=== PATIENT | male | born 1945 | race Caucasian/White ===

== ENCOUNTER → 2018-01-11 07:15 | Outpatient (CLI) | payer MEDICARE, SELFPAY ==
[2018-01-11 08:25] LABS: AST(SGOT) 17 U/L (15-37); Alanine Aminotransfer ALT/SGPT 27 U/L (16-61); Albumin, Serum 3.8 g/dL (3.2-5.0); Alkaline Phosphatase 32 U/L (45-117); Bilirubin, Direct 0.13 mg/dL (0.00-0.30); Cholesterol 144 mg/dL (200); Globulin 3.4 g/dL (2.2-4.2); High Density Lipoprotein 53 mg/dL; Protein, Total 7.2 g/dL (6.4-8.2); Triglycerides 86 mg/dL; Very Low Density Lipoprotein 17 mg/dL (5-40)
== END ==
PROVIDERS: Family Provider Family Medicine; PCP Family Medicine; Visit Provider Internal Medicine Cardiovascular Disease
DX: I10 Essential (primary) hypertension (principal); E78.5 Hyperlipidemia, unspecified; I25.10 Atherosclerotic heart disease of native coronary artery without angina pectoris; Z95.1 Presence of aortocoronary bypass graft
CPT/HCPCS: 36415; 80061; 80076

== ENCOUNTER → 2018-08-26 08:56 | Outpatient (CLI) | payer MEDICARE, SELFPAY ==
[2018-07-12 11:41] VITALS: BMI 31.8
[2018-08-26 09:35] LABS: Hematocrit 45.8 % (40-54); Hemoglobin 15.9 g/dl (13.0-16.5); Mean Corp Hgb Conc 34.7 g/gl (32-36); Mean Corpuscular Hgb 31.3 pg (27.0-32.0); Mean Corpuscular Volume 90.2 fL (80-94); Mean Platelet Vol. 9.7 fl (6.2-12.0); Platelet Count 298 K/mm3 (150-450); RBC Distribution Width CV 13.5 % (11.6-14.6); RBC Distribution Width SD 44.3 fl (35.1-43.9); Red Blood Count 5.08 M/mm3 (4.6-6.2); Scan Indicated on CBC? Y/N NO; White Blood Count 5.9 K/mm3 (4.4-11.0)
[2018-08-26 10:04] LABS: ALB/GLOB Ratio 1.2 RATIO (0.9-2.4); AST(SGOT) 21 U/L (15-37); Alanine Aminotransfer ALT/SGPT 39 U/L (16-61); Albumin, Serum 3.8 g/dL (3.2-5.0); Alkaline Phosphatase 31 U/L (45-117); Anion Gap 8 (5-15); BUN 25 mg/dL (7-18); BUN/Creat Ratio 19.4 RATIO (10-20); Calcium,Total 8.8 mg/dL (8.5-10.1); Chloride 103 mmol/L (98-107); Cholesterol 142 mg/dL (200); Creatinine, Serum 1.29 mg/dL (0.70-1.30); EST Glomerular Filtration Rate 58 mL/min (>60); Est Glom Filt Rate - Afr Amer 70 mL/min (>60); Globulin 3.3 g/dL (2.2-4.2); Glucose 105 mg/dL (74-106); High Density Lipoprotein 53 mg/dL; PSA,Total - Annual Screen 1.78 ng/mL (0.00-4.00); Potassium 4.1 mmol/L (3.5-5.1); Protein, Total 7.1 g/dL (6.4-8.2); Sodium Level 138 mmol/L (136-145); Triglycerides 112 mg/dL; Very Low Density Lipoprotein 22 mg/dL (5-40)
== END ==
PROVIDERS: Family Provider Family Medicine; PCP Family Medicine; Referring Provider Family Medicine; Visit Provider Family Medicine
DX: I25.10 Atherosclerotic heart disease of native coronary artery without angina pectoris (principal); N40.0 Benign prostatic hyperplasia without lower urinary tract symptoms; Z12.5 Encounter for screening for malignant neoplasm of prostate
CPT/HCPCS: 36415; 80053; 80061; 84153; 85027; G0103

== ENCOUNTER → 2018-11-22 | Outpatient (CLI) | payer MEDICARE, SELFPAY ==
[2018-07-12 11:41] VITALS: BMI 31.8
--- NOTE | 2018-11-22 14:14 | RAD_ITS ---
STUDY: X-RAY - ABDOMEN/PELVIS REASON FOR EXAM: Male, 73 years old. Abdominal pain TECHNIQUE: AP supine and upright views of the abdomen and pelvis. COMPARISON: None. FINDINGS: There is no bowel obstruction. There is air and stool to the level of the rectum. There are surgical clips noted in the abdominal wall, consistent with prior hernia repair. The visualized osseous structures are within normal limits. RAD/Abd Inc Decub and/or Erect IMPRESSION: No bowel obstruction. Electronically Signed: Nile Blackwell, at 14:49 EDT Tel , Service support ,
== END | disposition home or self-care (01) ==
LOC: MTRAD 14:12
PROVIDERS: Family Provider Family Medicine; PCP Family Medicine; Referring Provider Family Medicine; Visit Provider Family Medicine
DX: R10.9 Unspecified abdominal pain (principal)
CPT/HCPCS: 74019

== ENCOUNTER → 2018-12-09 | Outpatient (CLI) | payer MEDICARE, SELFPAY ==
[2018-07-12 11:41] VITALS: BMI 31.8
[2018-12-09 10:00] LABS: ALB/GLOB Ratio 0.7 RATIO (0.9-2.4); AST(SGOT) 13 U/L (15-37); Alanine Aminotransfer ALT/SGPT 26 U/L (16-61); Albumin, Serum 3.2 g/dL (3.2-5.0); Alkaline Phosphatase 58 U/L (45-117); Anion Gap 8 (5-15); BUN 26 mg/dL (7-18); BUN/Creat Ratio 21.7 RATIO (10-20); Calcium,Total 9.1 mg/dL (8.5-10.1); Chloride 106 mmol/L (98-107); EST Glomerular Filtration Rate 63 mL/min (>60); Est Glom Filt Rate - Afr Amer 76 mL/min (>60); Globulin 4.6 g/dL (2.2-4.2); Glucose 108 mg/dL (74-106); Protein, Total 7.8 g/dL (6.4-8.2); Sodium Level 142 mmol/L (136-145)
== END | disposition home or self-care (01) ==
LOC: LAB 09:11
PROVIDERS: Family Provider Family Medicine; PCP Family Medicine; Referring Provider Family Medicine; Visit Provider Family Medicine
DX: I10 Essential (primary) hypertension (principal)
CPT/HCPCS: 36415; 80053

== ENCOUNTER 2018-12-30 23:44 | Observation (INO) | payer MEDICARE, SELFPAY ==
[2018-07-12 11:41] VITALS: BMI 31.8
[2018-12-30 23:45] VITALS: BP 185/82; PULSE 65; RESP 18; TEMP 37.1; O2SAT 99; BMI 32.0
[2018-12-31] VITALS (10 sets, daily range): BP systolic 138–168; BP diastolic 65–82; PULSE 55–67; RESP 16–18; TEMP 36.4–36.9; O2SAT 96–99; BMI 31.5; BMI 31.6
--- NOTE | 2018-12-31 00:03 | ED.DCSUM_ITS ---
History of Present Illness Chief Complaint: Chest Pain Informant: Patient Narrative: She presents with chest pain. It started 2 hours ago at rest. He describes a tightness across his lower chest both sides. No other symptoms. No radiation of symptoms. No shortness of breath. Status post CABG quadruple in 2016. He has had no problems since. No Plavix. Takes an aspirin daily. Took today's aspirin this morning. It is resolved currently. It lasted for an hour and a half prior to coming in. Denies any PE risk factors. He does have hypertension - Past Medical History (1) Atherosclerosis of coronary artery of [place] heart without angina pectoris Status: Chronic Comment: CABG x 4 Sequential XIE-LAD and D1, SVG-High Lat Cx, SVG-Cx 09/11/15 (2) Essential hypertension Status: Chronic (3) H/O coronary artery bypass surgery Status: Chronic Comment: CABG x 4 Sequential XIE-LAD and D1, SVG-High Lat Cx, SVG-Cx 09/11/15 Dr Min @ [facility] (4) Hyperlipidemia Status: Chronic (5) Syncope and collapse Status: Chronic Past Medical History - Allergies and Home Meds Allergies/Adverse Reactions: Allergies No Known Allergies Allergy (Verified 07/12/18 11:41) Primary Care Physician: Jesus Garrett MD [Primary Care Provider] - Prior records reviewed: Yes Past Medical History: - - See problem list Surgical History: coronary bypass surgery Smoking Status: Never smoker Alcohol: None Drugs: None - Family History Maternal Family History: Reports: - - Aortic stenosis Review of Systems General: Denies: Chills, Fever, Sweats Eyes: Denies: Visual changes - bilaterally, Diplopia ENT: Denies: Rhinorrhea, Sore throat Cardiovascular: Reports: Chest pain. Denies: Palpitations Respiratory: Denies: Dyspnea, Cough, Dyspnea on exertion Gastrointestinal: Denies: Abdominal pain, Nausea, Vomiting, Diarrhea, Melena, Hematochezia Genitourinary: Denies: Dysuria, Hematuria, Frequency Musculoskeletal: Denies: Back pain, Extremity Pain Skin: Denies: Rash, Wounds Neurological: Denies: Headache, Weakness, Numbness Physical Exam Vital Signs/Narrative: Vital Signs Temp Pulse Resp BP Pulse Ox 12/30/18 23:45 98.8 F 65 18 185/82 H 99 General: Well nourished, Well developed, No Acute Distress Head: Normocephalic, Atraumatic Eyes: Perrl, EOMI ENT: Moist mucous membranes, No rhinorrhea Neck: Supple, Nontender Cardiovascular: Regular rate, Regular rhythm, No murmurs Respiratory: No distress, CTA bilaterally, Chest nontender Abdomen: Soft, Nontender, Nondistended, Normal bowel sounds Back: Nontender, Normal Inspection Extremities: Nontender, No edema Skin: Normal color, No rash Neurological: Alert, Oriented x3, Cranial nerves II-XII grossly intact, Normal Strength, Normal Sensation Psychological: Normal affect, Normal Mood Diagnostic/Tx/Re-eval - Medical Decision Making EKG shows normal sinus rhythm at a rate of 69. T wave inversion in aVL. This is change from 2016. Otherwise normal EKG without acute STEMI or ischemic findings. Patient took aspirin. No pain currently. Lab work chest x-ray obtained. Troponin negative. BUN 28. Rest of labs unremarkable. Chest x-ray shows atelectasis lingular. Otherwise nothing acute. Patient willing to stay in the hospital for further cardiac rule out. Discussed with the hospitalist and will be admitted ED Disposition - Plan for ED Patient: Disposition: Acute Care Hospital [facility] Diagnosis: Chest pain at rest
--- NOTE | 2018-12-31 00:03 | RAD_ITS ---
HISTORY: Chest Pain ADDITIONAL HISTORY: None provided. COMPARISON: 09/06/2015 TECHNIQUE: Frontal and lateral chest radiographs. Number of images including paperwork: 2 FINDINGS: LUNGS AND PLEURA: No dense consolidation. Mild airspace opacity in the lingula. Apical scarring appears similar. CARDIAC SILHOUETTE: Unremarkable. MEDIASTINUM AND ELDER: Unremarkable. UPPER ABDOMEN: Unremarkable. SKELETON AND SOFT TISSUES: No acute findings. Degenerative changes. OTHER DEVICES AND HARDWARE: Sternal wires, surgical clips and epicardial pacing wire fragments. RAD/Chest PA and Lateral IMPRESSION: Small area of opacity in the lingula, possibly atelectasis, pneumonia and/or scarring. Radiographic follow-up recommended to ensure resolution. at 0057 Reported and signed by: Selina Raymond MD Electronically Signed: Selina Raymond MD at 0:57 EDT Tel , Service support ,
--- NOTE | 2018-12-31 00:03 | EKG12_ITS ---
Test Reason : CP Blood Pressure : / mmHG Vent. Rate : 069 BPM Atrial Rate : 069 BPM P-R Int : 156 ms QRS Dur : 098 ms QT Int : 426 ms P-R-T Axes : 051 -25 080 degrees QTc Int : 456 ms Normal sinus rhythm Normal ECG Confirmed by AMANDEEP PAULA, ELMER ([id number]), acquisition editor YAHAIRA TORREZ ([id number]) on 01/03/2019 1:20:35 PM Referred By: JADON Confirmed By:ELMER BERNSTEIN MD
[2018-12-31 00:15] LABS: Absolute Lymphocyte Count 1.28 X10^3/uL (0.83-4.51); Absolute Neutrophil Count 5.6 X10^3/uL (2.0-7.7); Basophil# 0.03 X10^3/uL; Basophil% 0.4 % (0-1); Eosinophil# 0.14 X10^3/uL; Eosinophils% 1.8 % (0-5); Hematocrit 42.2 % (40-54); Hemoglobin 14.2 g/dL (13.0-16.5); Lymphocyte # 1.28 X10^3/ul (4.0); Lymphocyte % 16.5 % (19-41); Mean Corp Hgb Conc 33.6 g/dL (32-36); Mean Corpuscular Hgb 30.7 pg (27.0-32.0); Mean Corpuscular Volume 91.1 fL (80-94); Mean Platelet Vol. 9.9 fl (6.2-12.0); NRBC Flagged by Analyzer 0 % (0-5); Neutrophil # 5.61 X10^3/uL (2.7-7.7); Neutrophil % 72.2 % (47-70); Platelet Count 260 K/mm3 (150-450); RBC Distribution Width CV 13.6 % (11.6-14.6); RBC Distribution Width SD 45.3 fl (35.1-43.9); Red Blood Count 4.63 M/mm3 (4.6-6.2); White Blood Count 7.8 K/mm3 (4.4-11.0)
[2018-12-31 00:23] LABS: Anion Gap 7 (5-15); BUN 28 mg/dL (7-18); BUN/Creat Ratio 23.3 RATIO (10-20); Calcium,Total 8.7 mg/dL (8.5-10.1); Chloride 106 mmol/L (98-107); EST Glomerular Filtration Rate 63 mL/min (>60); Est Glom Filt Rate - Afr Amer 76 mL/min (>60); Estimated Creatinine Clearance 57.45 ml/min; Glucose 137 mg/dL (74-106); Potassium 3.9 mmol/L (3.5-5.1); Sodium Level 139 mmol/L (136-145)
--- NOTE | 2018-12-31 02:06 | PCM.HP.STD ---
Problem List (1) Chest pain at rest Status: Acute (2) Essential hypertension Status: Chronic (3) Atherosclerosis of coronary artery of [place] heart without angina pectoris Status: Chronic Comment: CABG x 4 Sequential XIE-LAD and D1, SVG-High Lat Cx, SVG-Cx 09/11/15 (4) H/O coronary artery bypass surgery Status: Chronic Comment: CABG x 4 Sequential XIE-LAD and D1, SVG-High Lat Cx, SVG-Cx 09/11/15 Dr Min @ [facility] (5) Syncope and collapse Status: Chronic (6) Hyperlipidemia Status: Chronic History of Present Illness Date of Admission: 12/31/18 Chief Complaint: Chest pain The patient is a 73 year old M with history of coronary artery disease status post quadruple bypass in August 2015 came to ER with chest pain after the supper on 12/30/2018. Patient did not had any angina or chest pain after bypass surgery until the day of admission. Describes chest pain as pressure, from left to right side of chest associated with mild shortness of breath. Patient denies dizziness, lightheadedness, diaphoresis or syncope. In ED, EKG shows normal sinus rhythm at 69 bpm. QTc [address]-T changes. Previous EKG in August 2015 shows normal sinus rhythm with QTC 483 ms. First troponin negative Chest x-ray shows a small area of opacity in lingula possible atelectasis/scarring. Patient does not have signs and symptoms of pneumonia including cough, prolonged shortness of breath or sputum or fever. [] Past Medical History Past Medical History (Chronic Problems): Chronic Problems (Last Reviewed 07/12/18 @ 11:42 by Zenaida Novak) Essential hypertension (Chronic) Atherosclerosis of coronary artery of [place] heart without angina pectoris (Chronic) CABG x 4 Sequential XIE-LAD and D1, SVG-High Lat Cx, SVG-Cx 09/11/15 H/O coronary artery bypass surgery (Chronic 09/11/15) CABG x 4 Sequential XIE-LAD and D1, SVG-High Lat Cx, SVG-Cx 09[facility] Syncope and collapse (Chronic) Hyperlipidemia (Chronic) Medical History: Medical History (Last Reviewed 07/12/18 @ 11:42 by Zenaida Novak) Essential hypertension (Chronic) I10 Atherosclerosis of coronary artery of [place] heart without angina pectoris (Chronic) I25.10 CABG x 4 Sequential XIE-LAD and D1, SVG-High Lat Cx, SVG-Cx 09/11/15 Syncope and collapse (Chronic) R55 Hyperlipidemia (Chronic) E78.5 GERD (gastroesophageal reflux disease) K21.9 Obstructive sleep apnea G47.33 Hypertension (Inactive) I10 Allergies No Known Allergies Allergy (Verified 07/12/18 11:41) Home Medications: Ambulatory Orders Medication Instructions Recorded Ropinirole HCl [Requip] 1 mg PO DAILY 09/06/15 atorvastatin 20 mg tablet 20 mg PO QHS #90 tab 11/13/17 gemfibrozil 600 mg tablet 600 mg PO DAILY #90 tab 11/13/17 omeprazole 40 mg capsule,delayed 40 mg PO DAILY #90 cap 11/13/17 release aspirin 81 mg tablet,delayed 81 mg PO QDAY 11/27/17 release multivitamin tablet 1 tab PO QAM 11/27/17 metoprolol tartrate 25 mg tablet 12.5 mg PO BID #90 tab 01/26/18 Lisinopril 5 mg PO DAILY 12/30/18 Surgical History: Surgical History (Last Reviewed 07/12/18 @ 11:42 by Zenaida Novak) H/O coronary artery bypass surgery (Chronic) Onset Date: 09/11/15 Z95.1 CABG x 4 Sequential XIE-LAD and D1, SVG-High Lat Cx, SVG-Cx 09/11/15 Dr Min @ [facility] Surgical History: coronary bypass surgery Smoking Status: Never smoker Alcohol: None Drugs: None - *Family History Maternal History Items: - - Aortic stenosis Review of Systems Constitutional: Denies: Chills, Fever, Weight Change HEENT: Denies: Head Aches, Sinus Congestion, Sinus Drainage Cardiovascular: Reports: Chest Pain. Denies: Palpitations Respiratory: Denies: Cough, Shortness of breath at rest, Sputum production Gastrointestinal: Denies: Abdominal Pain, Nausea, Vomiting Genitourinary: Denies: Dysuria Musculoskeletal: Denies: Joint Pain, Joint Tenderness Skin: Denies: Rash, Wounds Neurological: Denies: Numbness, Tingling, Focal weakness Psychiatric: Denies: Anxiety, Depression, Homicidal Ideations, Suicidal Ideations Hematologic/ Lymphatic: Denies: Easy Bruising, Easy Bleeding VTE Information - Inpt Only VTE Present on Admission: No VTE Mechan Device Prophylaxis: None VTE Pharm Prophylaxis ordered?: Yes Patient Problems: Active and Suspected Problems (Last Reviewed 07/12/18 @ 11:42 by Zenaida Novak) Chest pain at rest (Acute) - Physical Exam General: Alert, Oriented x3, Cooperative HEENT: Atraumatic, PERRLA, EOMI, Normocephalic Neck: Supple, No JVD, Negative Carotid Bruits Lungs: Clear to auscultation, Normal air movement, No rhonchi, No wheeze, No rales Cardiovascular: Regular rate, Regular Rhythm, Normal S1, Normal S2, No murmurs Abdomen: Bowel Sounds Present, Soft, Non Tender, Non-Distended Extremities: No edema, Capillary Refill Less than 3 Seconds Skin: No rashes, No breakdown Musculoskeletal: No Tenderness to Palpation of Joints or Extremities, Arthritic Changes Neurological: Cranial nerves II-XII grossly intact, Deep Tendon Reflexes 2+/4 and Symmetrical, Neuro grossly intact Psych/Mental Status: Normal Affect, Appropriate Vital Signs Temp Pulse Resp BP Pulse Ox 98.8 F 57 L 16 161/66 H 99 12/30/18 23:45 12/31/18 00:46 12/31/18 00:46 12/31/18 00:46 12/30/18 23:45 Oxygen Flow Rate (L/min) 2 Oxygen Delivery Method Room Air Weight: 220 lb Body Mass Index (BMI) 31.5 Laboratory Tests Past 24 Hrs 12/31/18 12/31/18 00:00 00:00 WBC 7.8 RBC 4.63 Hgb 14.2 Hct 42.2 MCV 91.1 MCH 30.7 MCHC 33.6 RDW Std Deviation 45.3 H RDW Coeff of Deshawn 13.6 Plt Count 260 MPV 9.9 Immature Gran % (Auto) 0.100 Neut % (Auto) 72.2 H Lymph % (Auto) 16.5 L Hudson % (Auto) 9.0 Eos % (Auto) 1.8 Baso % (Auto) 0.4 Absolute Neuts (auto) 5.6 Absolute Lymphs (auto) 1.28 Nucleated RBC % 0 Sodium 139 Potassium 3.9 Chloride 106 Carbon Dioxide 26.0 Anion Gap 7 BUN 28 H Creatinine 1.20 Estim Creat Clear Calc 57.45 Est GFR (MDRD) Af Amer 76 Est GFR (MDRD) Non-Af 63 BUN/Creatinine Ratio 23.3 H Glucose 137 H Calcium 8.7 Troponin I < 0.015 Assessment/Plan All Active Problems (Last Reviewed 07/12/18 @ 11:42 by Zenaida Novak) Chest pain at rest (Acute) Abnormal cardiovascular stress test (Resolved) Syncope (Resolved) The patient is a 73 year old M with history of coronary artery disease status post quadruple bypass in August 2015 came to ER with chest pain after the supper on 12/30/2018. In ED, EKG shows normal sinus rhythm at 69 bpm. QTc [address]-T changes. Previous EKG in August 2015 shows normal sinus rhythm with QTC 483 ms. First troponin negative Chest x-ray shows a small area of opacity in lingula possible atelectasis/scarring. Patient does not have signs and symptoms of pneumonia including cough, shortness of breath or sputum or fever. 1. Atypical chest pain: Patient is being admitted in PCU. Cardiac monitoring. Cycle cardiac enzymes. If cardiac enzymes negative, treadmill nuclear stress for morning. Fasting profile tomorrow a.m. TSH tomorrow a.m. 2. Coronary artery disease status post quadruple bypass surgery. Patient is on aspirin, lisinopril, metoprolol, gemfibrozil and atorvastatin. 3. Mild hyperglycemia: A1c tomorrow a.m. glucose 137 in BMP. 4. Other comorbidities include hypertension and dyslipidemia: Home medication reconciliation done. Blood pressure is elevated 185/82. Titrate dose of lisinopril accordingly. DVT prophylaxis: On Lovenox 40 mg subcu daily. Clinical Impression(s) from Imaging Studies Chest X-Ray 12/31/18 00:03 IMPRESSION: Small area of opacity in the lingula, possibly atelectasis, pneumonia and/or scarring. Radiographic follow-up recommended to ensure resolution. Laboratory Results 12/31/18 00:00: WBC 7.8, RBC 4.63, Hgb 14.2, Hct 42.2, MCV 91.1, MCH 30.7, MCHC 33.6, RDW Std Deviation 45.3 H, RDW Coeff of Deshawn 13.6, Plt Count 260, MPV 9.9, Immature Gran % (Auto) 0.100, Neut % (Auto) 72.2 H, Lymph % (Auto) 16.5 L, Hudson % (Auto) 9.0, Eos % (Auto) 1.8, Baso % (Auto) 0.4, Absolute Neuts (auto) 5.6, Absolute Lymphs (auto) 1.28, Nucleated RBC % 0 12/31/18 00:00: Sodium 139, Potassium 3.9, Chloride 106, Carbon Dioxide 26.0, Anion Gap 7, BUN 28 H, Creatinine 1.20, Estim Creat Clear Calc 57.45, Est GFR (MDRD) Af Amer 76, Est GFR (MDRD) Non-Af 63, BUN/Creatinine Ratio 23.3 H, Glucose 137 H, Calcium 8.7, Troponin I < 0.015 Code Visit OBSV E&M: 15614 Initial observation care L3
--- NOTE | 2018-12-31 02:09 | EKG12_ITS ---
Test Reason : CP ADMIT Blood Pressure : / mmHG Vent. Rate : 061 BPM Atrial Rate : 061 BPM P-R Int : 160 ms QRS Dur : 102 ms QT Int : 446 ms P-R-T Axes : 059 -29 080 degrees QTc Int : 448 ms Normal sinus rhythm Normal ECG When compared with ECG of 06-SEP-2015 02:05, No significant change was found Confirmed by MICHELLE ALVARADO ([id number]), editor map YAHAIRA TORREZ ([id number]) on 01/05/2019 3:46:22 PM Referred By: DR HOWELL Confirmed By:MICHELLE ALVARADO
[2018-12-31] MEDS: Enoxaparin 40 MG/0.4 ML Syringe SC (02:32)
[2018-12-31] MEDS: 0.9% Normal Saline 1,000 ML 50 ML IV (02:32)
[2018-12-31 05:41] LABS: Absolute Lymphocyte Count 1.83 X10^3/uL (0.83-4.51); Absolute Neutrophil Count 4.9 X10^3/uL (2.0-7.7); Basophil# 0.02 X10^3/uL; Basophil% 0.3 % (0-1); Eosinophil# 0.14 X10^3/uL; Eosinophils% 1.9 % (0-5); Hemoglobin 13.2 g/dL (13.0-16.5); Lymphocyte # 1.83 X10^3/ul (4.0); Lymphocyte % 24.4 % (19-41); Mean Corp Hgb Conc 33.8 g/dL (32-36); Mean Corpuscular Hgb 30.6 pg (27.0-32.0); Mean Corpuscular Volume 90.5 fL (80-94); Monocyte# 0.62 X10^3/uL; Monocyte% 8.3 % (0-10); NRBC Flagged by Analyzer 0 % (0-5); Neutrophil # 4.86 X10^3/uL (2.7-7.7); Neutrophil % 64.8 % (47-70); Platelet Count 236 K/mm3 (150-450); RBC Distribution Width CV 13.6 % (11.6-14.6); RBC Distribution Width SD 44.8 fl (35.1-43.9); Red Blood Count 4.31 M/mm3 (4.6-6.2); White Blood Count 7.5 K/mm3 (4.4-11.0)
[2018-12-31] MEDS: Aspirin E.C. 81 MG Tablet PO (05:50)
[2018-12-31] MEDS: Lisinopril 10 MG Tablet PO (05:53)
[2018-12-31 05:58] LABS: International Normalized Ratio 1.1; Partial Thromboplast Time 34.9 Seconds (24.1-36.2); Prothrombin Time (Protime)PT. 13.9 SECONDS (11.7-14.9)
[2018-12-31 06:30] LABS: Anion Gap 8 (5-15); BUN 27 mg/dL (7-18); BUN/Creat Ratio 26.2 RATIO (10-20); Calcium,Total 8.1 mg/dL (8.5-10.1); Chloride 108 mmol/L (98-107); Cholesterol 145 mg/dL (200); Creatinine, Serum 1.03 mg/dL (0.70-1.30); EST Glomerular Filtration Rate 75 mL/min (>60); Est Glom Filt Rate - Afr Amer 91 mL/min (>60); Estimated Creatinine Clearance 66.94 ml/min; Glucose 121 mg/dL (74-106); High Density Lipoprotein 54 mg/dL; Potassium 3.7 mmol/L (3.5-5.1); Sodium Level 142 mmol/L (136-145); Thyroid Stim Hormone (TSH) 0.81 uIU/mL (0.358-3.74); Triglycerides 145 mg/dL; Very Low Density Lipoprotein 29 mg/dL (5-40)
[2018-12-31 07:19] LABS: Hemoglobin A1c 6.3 % (4.2-6.3)
--- NOTE | 2018-12-31 09:37 | NURSING ---
PT TO STRESS TEST
--- NOTE | 2018-12-31 12:57 | STRESSREP ---
Stress Test Report Date: 12-31-18 Procedure: Exercise tolerance test/imaging study Indications: Chest pain; CAD; CABG Consent: Per the patient Procedure: The patient exercised on a Jb protocol for 4 minutes and 15 seconds completing Stage I and 1 minute and 15 seconds of Stage II achieving a peak heart rate of 122 bpm (82 % predicted maximal heart rate) with a peak blood pressure 220/80 mmHg and a peak MET capacity of 6 METs. The baseline ECG demonstrated sinus bradycardia; poor R wave progression. The peak exercise ECG demonstrated 0.[address] segment depression in leads II, III, and aVF with resolution towards baseline beginning by 1 minute in recovery. There were occasional PVCs during exercise and recovery. The functional capacity was considered decreased. There was [no complaint of chest discomfort during exercise or recovery]. The examination was discontinued secondary to dyspnea and leg discomfort. Impression: 1. Technically adequate (percent predicted maximal heart rate greater than 85%) exercise tolerance test 2. Peak exercise ECG with 0.[address] segment depression in leads II, III, and aVF with resolution towards baseline beginning by 1 minute in recovery 3. There were occasional PVCs during exercise and recovery 4. Pharmacologic (Regadenoson) evaluation pending Procedure: Pharmacologic stress nuclear imaging study Consent: Per the patient Procedure: The patient underwent pharmacologic (Regadenoson) evaluation with a peak heart rate of 97 beats per minute (65 %predicted maximal heart rate) and a peak blood pressure of 184/70 mmHg. The baseline ECG demonstrated normal sinus rhythm; poor R wave progression. The peak pharmacologic ECG demonstrated no obvious ECG changes. There was a rare PVC during recovery. [There was no complaint of chest discomfort during pharmacologic infusion or recovery]. The examination was discontinued secondary to completion of protocol. Impression: 1. Pharmacologic (Regadenoson) evaluation 2. Peak pharmacologic ECG with no obvious ECG changes. 3. There was a rare PVC during recovery. 4. Nuclear images pending Myocardial perfusion imaging study: Technique: The patient was injected with 14.3 millicuries of technetium 99m Cardiolite and subsequently rest SPECT Cardiolite nuclear imaging was obtained in the horizontal long, vertical long, and short axis views. The patient exercised on a Jb protocol for 4 minutes and 15 seconds completing Stage I and 1 minute and 15 seconds of Stage II achieving a peak heart rate of 122 bpm (82 % predicted maximal heart rate) with a peak blood pressure 220/80 mmHg and a peak MET capacity of 6 METs. The patient underwent pharmacologic (Regadenoson) evaluation with a peak heart rate of 97 beats per minute (65 % percent predicted maximal heart rate) and a peak blood pressure of 184/70 mmHg. The patient was injected with 43.0 millicuries of technetium 99m Cardiolite and subsequently stress SPECT Cardiolite nuclear imaging was obtained in the horizontal long, vertical long, and short axis views. A gated Cardiolite study at peak stress was obtained. Interpretation: Rest and stress SPECT Cardiolite nuclear imaging status post realignment, normalization, and attenuation correction demonstrate relative uniform tracer uptake and myocardial perfusion appearing within normal limits. [There is end systolic thickening and brightening]. [The gated Cardiolite study demonstrates myocardial thickening and inward wall motion]. The reported LVEF is 78 %. Impression: 1. [Rest and stress SPECT Cardiolite nuclear imaging demonstrate relative uniform tracer uptake and myocardial perfusion appearing within normal limits]. 2. The gated Cardiolite study reports an LVEF of 78 %. This note was generated with Hytleation software. It may contain incorrect words, spelling, and punctuation that were not noted in checking the note before signing.
[2018-12-31] MEDS: Gemfibrozil 600 MG Tablet PO (13:06)
[2018-12-31] MEDS: Pantoprazole Sodium 40 MG Tablet PO (13:06)
[2018-12-31] MEDS: Multivitamins,Therapeutic Tablet 1 TABLET PO (13:06)
[2018-12-31] MEDS: Pramipexole Di-HCl 0.5 MG Tablet PO (13:06)
[2018-12-31] MEDS: Metoprolol Tartrate 25 MG Tablet 12.5 MG PO (13:06)
--- NOTE | 2018-12-31 13:26 | DCINST_ITS ---
- Discharge Diagnoses Current Active Problems: Current Active and Chronic Problems (Last Reviewed 07/12/18 @ 11:42 by Zenaida Novak) Chest pain at rest (Acute) You will use the following diet at home:: Cardiac Your food should be the consistency of: Regular Your liquids should be the consistency of: Regular/Thin Discharge Activity: Return to Normal Activity Weight Bearing Status: Weight bearing as tolerated Call your doctor if you observe: Shortness of breath, Chest pain Instructions: What Is Angina? Allergies/Adverse Reactions: Allergies No Known Allergies Allergy (Verified 07/12/18 11:41) Medications to take at Discharge Ropinirole HCl [Requip] 1 mg PO DAILY 09/06/15 atorvastatin 20 mg tablet 20 mg PO QHS #90 tab 11/13/17 gemfibrozil 600 mg tablet 600 mg PO DAILY #90 tab 11/13/17 omeprazole 40 mg capsule,delayed release 40 mg PO DAILY #90 cap 11/13/17 aspirin 81 mg tablet,delayed release 81 mg PO QDAY 11/27/17 multivitamin tablet 1 tab PO QAM 11/27/17 metoprolol tartrate 25 mg tablet 12.5 mg PO BID #90 tab 01/26/18 Lisinopril 10 mg PO DAILY 12/30/18 Primary Care Physician: Jesus Garrett MD [Primary Care Provider] - Please follow up with your Primary Care Physician in: call office within one week for an appointment Test Results: Test results from this visit will be discussed in further detail at your follow- up appointment, if applicable. Proposed Discharge Date: 12/31/18
--- NOTE | 2018-12-31 13:28 | PCM.DC.SUM ---
Discharge Date and Diagnosis - Problem List Patient Problems: Active and Suspected Problems (Last Reviewed 07/12/18 @ 11:42 by Zenaida Novak) Chest pain at rest (Acute) Date of Admission: 12/31/18 Date of Discharge: 12/31/18 - Primary Discharge Diagnosis Active and Suspected Problems (Last Reviewed 07/12/18 @ 11:42 by Zenaida Novak) Chest pain at rest (Acute) - Secondary Discharge Diagnosis Chronic Problems (Last Reviewed 07/12/18 @ 11:42 by Zenaida Novak) Essential hypertension (Chronic) Atherosclerosis of coronary artery of [place] heart without angina pectoris (Chronic) CABG x 4 Sequential XIE-LAD and D1, SVG-High Lat Cx, SVG-Cx 09/11/15 H/O coronary artery bypass surgery (Chronic 09/11/15) CABG x 4 Sequential XIE-LAD and D1, SVG-High Lat Cx, SVG-Cx 09/11/15 Dr Min @ [facility] Syncope and collapse (Chronic) Hyperlipidemia (Chronic) Hospital Course and Treatment Imaging Results: 12/31/18 05:55 Nuclear Stress Test - Chemical [NM] Routine Operations: None Procedures: Nuclear stress test Summary of Care Provided: The patient is a 73 year old M with an extensive past medical history as listed which includes coronary artery disease status post quadruple bypass in August 2015. He was admitted through the ED on 12/31/2018 with a complaint of chest pain which started after supple 1 day prior to admission. Chest pain was pressure-like, radiated from the left side of his chest to the right side lasted with mild shortness of breath. EKG showed no acute ST changes. Chest x-ray showed possible atelectasis. Initial troponin was negative. Patient was admitted and managed for chest pain to rule out ACS. He had a stress test on 12/31/2018 which was negative. Patient remained stable throughout admission and chest pain did not of her care. He was discharged home on 12/31/2018 and is follow-up with his primary care doctor. Patient seen and examined prior to discharge. He had no complaints and felt well. Review of systems otherwise negative. Labs and vitals reviewed. Home medications reviewed and reconciled. On examination Vital Signs Height 5 ft 10 in Weight: 219 lb 12.744 oz Weight in Pounds 219.8 lbs Pulse Ox 99 Temperature 98.0 F Pulse Rate 62 Respiratory Rate 18 Blood Pressure [BP] 138/65 Blood Pressure 156/71 Blood Pressure Position [BP] Left Lateral Blood Pressure Position Semi-Fowlers []General: Alert, Oriented x3, Cooperative HEENT: Atraumatic, PERRLA, EOMI, Normocephalic Neck: Supple, No JVD, Negative Carotid Bruits Lungs: Clear to auscultation, Normal air movement, No rhonchi, No wheeze, No rales Cardiovascular: Regular rate, Regular Rhythm, Normal S1, Normal S2, No murmurs Abdomen: Bowel Sounds Present, Soft, Non Tender, Non-Distended Extremities: No edema, Capillary Refill Less than 3 Seconds Skin: No rashes, No breakdown Musculoskeletal: No Tenderness to Palpation of Joints or Extremities, Arthritic Changes Neurological: Cranial nerves II-XII grossly intact, Deep Tendon Reflexes 2+/4 and Symmetrical, Neuro grossly intact Psych/Mental Status: Normal Affect, Appropriate Plan as above. Patient Problems: Active and Suspected Problems (Last Reviewed 07/12/18 @ 11:42 by Zenaida Novak) Chest pain at rest (Acute) - Physical Exam Vital Signs Temp Pulse Resp BP Pulse Ox 98.0 F 62 18 156/71 H 99 12/31/18 12:00 12/31/18 13:06 12/31/18 12:00 12/31/18 13:06 12/31/18 12:00 Oxygen Flow Rate (L/min) 2 Oxygen Delivery Method Room Air Weight: 219 lb 12.744 oz Body Mass Index (BMI) 31.5 Intake and Output for Last 24 Hours 12/29/18 12/30/18 12/31/18 23:59 23:59 23:59 Intake Total 325 / 325 Balance 325 / 325 Laboratory Tests Past 24 Hrs 12/31/18 12/31/18 12/31/18 00:00 00:00 02:45 WBC 7.8 RBC 4.63 Hgb 14.2 Hct 42.2 MCV 91.1 MCH 30.7 MCHC 33.6 RDW Std Deviation 45.3 H RDW Coeff of Deshawn 13.6 Plt Count 260 MPV 9.9 Immature Gran % (Auto) 0.100 Neut % (Auto) 72.2 H Lymph % (Auto) 16.5 L Lea % (Auto) 9.0 Eos % (Auto) 1.8 Baso % (Auto) 0.4 Absolute Neuts (auto) 5.6 Absolute Lymphs (auto) 1.28 Nucleated RBC % 0 PT INR APTT Sodium 139 Potassium 3.9 Chloride 106 Carbon Dioxide 26.0 Anion Gap 7 BUN 28 H Creatinine 1.20 Estim Creat Clear Calc 57.45 Est GFR (MDRD) Af Amer 76 Est GFR (MDRD) Non-Af 63 BUN/Creatinine Ratio 23.3 H Glucose 137 H Hemoglobin A1c Calcium 8.7 Troponin I < 0.015 < 0.015 Triglycerides Cholesterol LDL Cholesterol VLDL Cholesterol HDL Cholesterol TSH 12/31/18 12/31/18 12/31/18 05:15 05:15 05:15 WBC 7.5 RBC 4.31 L Hgb 13.2 Hct 39.0 L MCV 90.5 MCH 30.6 MCHC 33.8 RDW Std Deviation 44.8 H RDW Coeff of Deshawn 13.6 Plt Count 236 MPV 10.0 Immature Gran % (Auto) 0.300 Neut % (Auto) 64.8 Lymph % (Auto) 24.4 Lea % (Auto) 8.3 Eos % (Auto) 1.9 Baso % (Auto) 0.3 Absolute Neuts (auto) 4.9 Absolute Lymphs (auto) 1.83 Nucleated RBC % 0 PT INR APTT Sodium 142 Potassium 3.7 Chloride 108 H Carbon Dioxide 26.0 Anion Gap 8 BUN 27 H Creatinine 1.03 Estim Creat Clear Calc 66.94 Est GFR (MDRD) Af Amer 91 Est GFR (MDRD) Non-Af 75 BUN/Creatinine Ratio 26.2 H Glucose 121 H Hemoglobin A1c 6.3 Calcium 8.1 L Troponin I < 0.015 Triglycerides 145 Cholesterol 145 LDL Cholesterol 62 VLDL Cholesterol 29 HDL Cholesterol 54 TSH 0.81 12/31/18 05:15 WBC RBC Hgb Hct MCV MCH MCHC RDW Std Deviation RDW Coeff of Deshawn Plt Count MPV Immature Gran % (Auto) Neut % (Auto) Lymph % (Auto) Lea % (Auto) Eos % (Auto) Baso % (Auto) Absolute Neuts (auto) Absolute Lymphs (auto) Nucleated RBC % PT 13.9 INR 1.1 APTT 34.9 Sodium Potassium Chloride Carbon Dioxide Anion Gap BUN Creatinine Estim Creat Clear Calc Est GFR (MDRD) Af Amer Est GFR (MDRD) Non-Af BUN/Creatinine Ratio Glucose Hemoglobin A1c Calcium Troponin I Triglycerides Cholesterol LDL Cholesterol VLDL Cholesterol HDL Cholesterol TSH Discharge Diet: Low fat/ Low Cholesterol Discharge Activity: Return to Normal Activity Weight Bearing Status: Weight bearing as tolerated Call your doctor if you observe: Shortness of breath, Chest pain Home Medications: Medications to take at Discharge Ropinirole HCl [Requip] 1 mg PO DAILY 09/06/15 atorvastatin 20 mg tablet 20 mg PO QHS #90 tab 11/13/17 gemfibrozil 600 mg tablet 600 mg PO DAILY #90 tab 11/13/17 omeprazole 40 mg capsule,delayed release 40 mg PO DAILY #90 cap 11/13/17 aspirin 81 mg tablet,delayed release 81 mg PO QDAY 11/27/17 multivitamin tablet 1 tab PO QAM 11/27/17 metoprolol tartrate 25 mg tablet 12.5 mg PO BID #90 tab 01/26/18 Lisinopril 10 mg PO DAILY 12/30/18 Primary Care Physician: Jesus Garrett MD [Primary Care Provider] - Please follow up with your Primary Care Physician in: call office within one week for an appointment Patient Instructions: What Is Angina? Disposition: Home Minutes spent on discharge:: 35 Patient Condition:: Stable Medical Necessity - Tobacco Use Smoking Status: Former smoker Meaningful Use Info Meaningful Use Diagnoses (Choose all that apply): None applicable Code Visit OBSV E&M: 12543 Observ/hosp same date L2
== END 2018-12-31 14:15 | disposition home or self-care (01) ==
LOC: ED 12-31 01:08 → PCU 12-31 01:31
PROVIDERS: Admitting Provider Internal Medicine; Emergency Provider Emergency Medicine; Family Provider Family Medicine; PCP Family Medicine; Visit Provider Student in an Organized Health Care Education/Training Program
DX: R07.89 Other chest pain (principal); I10 Essential (primary) hypertension; I25.10 Atherosclerotic heart disease of native coronary artery without angina pectoris; E78.5 Hyperlipidemia, unspecified; R06.02 Shortness of breath; G47.33 Obstructive sleep apnea (adult) (pediatric); K21.9 Gastro-esophageal reflux disease without esophagitis; R73.9 Hyperglycemia, unspecified; Z79.899 Other long term (current) drug therapy; Z79.82 Long term (current) use of aspirin; Z95.1 Presence of aortocoronary bypass graft; Z87.891 Personal history of nicotine dependence
CPT/HCPCS: 36415; 71046; 78452; 80048; 80061; 83036; 84443; 84484; 85025; 85610; 85730; 93005; 93017; 96372; 99218; 99285; A9500; J7030; A4216; G0378; J2785

== ENCOUNTER → 2019-02-15 | Outpatient (CLI) | payer MEDICARE, SELFPAY ==
[2019-02-10 10:21] VITALS: BMI 31.5
--- NOTE | 2019-02-15 09:41 | RAD_ITS ---
STUDY: X-RAY CHEST REASON FOR EXAM: Male, 73 years old. Abnormal chest x-ray and chest pain a month ago. TECHNIQUE: PA and lateral views of the chest. COMPARISON: December 31, 2018. FINDINGS: The lungs are hyperexpanded. There is chronic interstitial changes at the lung bases thought to be secondary to COPD. There is a slightly improved inspiratory effort with resolution of the left basilar atelectasis seen on the prior study. There is no demonstrated pleural abnormality. Sternal cerclage wires are present from a prior sternotomy. The heart is normal in size. Normal mediastinum and mary. Normal visualized pulmonary arteries. Normal visualized aortic arch and descending thoracic aorta. The thoracic spine is obscured by the mediastinum. There is degenerative osteoarthritis of the bilateral shoulders. There is no demonstrated abnormality of the visualized soft tissue structures of the upper abdomen. RAD/Chest PA and Lateral IMPRESSION: Minimally improved inspiration with resolution of the lingular atelectasis seen on the prior study. There is no other major interval change. Electronically Signed: Gregorio Blanca DO at 16:53 EDT Tel [phone], Service support ,
== END | disposition home or self-care (01) ==
LOC: MTRAD 09:39
PROVIDERS: Family Provider Family Medicine; PCP Family Medicine; Referring Provider Family Medicine; Visit Provider Family Medicine
DX: R93.89 Abnormal findings on diagnostic imaging of other specified body structures (principal)
CPT/HCPCS: 71046

== ENCOUNTER → 2019-02-16 | Outpatient (CLI) | payer MEDICARE, SELFPAY ==
[2019-02-10 10:21] VITALS: BMI 31.5
--- NOTE | 2019-02-16 07:47 | US_ITS ---
STUDY: ABDOMINAL ULTRASOUND - RIGHT UPPER QUADRANT REASON FOR VISIT: Male, 73 years old abdominal pain. TECHNIQUE: Ultrasound evaluation of the right upper quadrant was performed with real-time and static richards-scale imaging. TECHNICAL QUALITY: Adequate. COMPARISON: None. FINDINGS: Liver: The liver measures 16 cm. There is increased echogenicity consistent with fatty infiltration. The bile ducts are within normal limits. There is hepatic color flow. The direction of portal flow is hepatopetal. There is no demonstrated mass lesion. Gallbladder: Normal distended gallbladder. The gallbladder wall measures 2.4 mm. There is a negative sonographic De Dios's sign. There is no pericholecystic fluid. There are multiple echogenic structures within the gallbladder, consistent with multiple gallstones. Common Bile Duct (C.B.D.): The common bile duct measures 3.7 mm. Pancreas: Normal size of the head, body and tail of the pancreas. There is normal echogenicity of the pancreas. There is no demonstrated pancreatic mass or cyst. Right Kidney: Normal size of the right kidney. The right kidney measures 11.2 cm by 7.4 cm x 5.4 cm. Normal renal cortex. The right cortex measures 1.6 cm. There is no demonstrated renal mass or cyst. There is no right hydronephrosis. US/Abdomen Limited IMPRESSION: Fatty infiltration of the liver. Gallstones. Electronically Signed: Geo Moreno, at 15:36 EDT , Service support ,
== END | disposition home or self-care (01) ==
LOC: US 07:46
PROVIDERS: Family Provider Family Medicine; PCP Family Medicine; Referring Provider Internal Medicine Cardiovascular Disease; Visit Provider Internal Medicine Cardiovascular Disease
DX: R10.9 Unspecified abdominal pain (principal)
CPT/HCPCS: 76705

== ENCOUNTER → 2019-04-04 | Outpatient (CLI) | payer MEDICARE, SELFPAY ==
[2019-04-04 08:23] VITALS: BMI 32.7
== END | disposition home or self-care (01) ==
LOC: PAVLAB 08:53
PROVIDERS: Family Provider Family Medicine; PCP Family Medicine; Referring Provider Surgery; Visit Provider Surgery
DX: Z01.818 Encounter for other preprocedural examination (principal)

== ENCOUNTER 2019-04-08 08:31 | Day surgery (SDC) | payer MEDICARE, SELFPAY ==
[2019-02-28 15:33] VITALS: BMI 31.5
[2019-04-04 08:23] VITALS: BMI 32.7
[2019-04-04 09:28] LABS: Hematocrit 47.2 % (40-54); Hemoglobin 16.2 g/dL (13.0-16.5); Mean Corp Hgb Conc 34.3 g/dL (32-36); Mean Corpuscular Hgb 30.4 pg (27.0-32.0); Mean Corpuscular Volume 88.6 fL (80-94); Mean Platelet Vol. 9.7 fl (6.2-12.0); Platelet Count 308 K/mm3 (150-450); RBC Distribution Width CV 13.2 % (11.6-14.6); RBC Distribution Width SD 42.6 fl (35.1-43.9); Red Blood Count 5.33 M/mm3 (4.6-6.2); White Blood Count 6.8 K/mm3 (4.4-11.0)
[2019-04-04 09:29] LABS: Anion Gap 5 (5-15); BUN 18 mg/dL (7-18); BUN/Creat Ratio 15.7 RATIO (10-20); Calcium,Total 9.3 mg/dL (8.5-10.1); Chloride 103 mmol/L (98-107); Creatinine, Serum 1.15 mg/dL (0.70-1.30); EST Glomerular Filtration Rate 66 mL/min (>60); Est Glom Filt Rate - Afr Amer 80 mL/min (>60); Glucose 107 mg/dL (74-106); Potassium 4.1 mmol/L (3.5-5.1); Sodium Level 137 mmol/L (136-145)
[2019-04-08] VITALS (13 sets, daily range): BP systolic 133–174; BP diastolic 52–80; PULSE 56–78; RESP 16–18; TEMP 36.6–37.3; O2SAT 92–98; BMI 32.5
--- NOTE | 2019-04-08 | GALL_PTH ---
PATIENT: FLOYD HOWELL [place] [facility] [id number] AGE/SX: 73/M ROOM: RE04/08/[address]: Dr. Floyd Zaldivar MD : [id number] BED: DIS: 04/08/2019 SPEC #: [id number] RECD: 04/08/19 14:47 STATUS: CLAUDIO TODD #: [id number] VASILE: 04/08/19 00:[address]: Floyd Zaldivar DEPT: SURGICAL PATHOLOGY RECD BY: Saurabh Dawn ENTERED: 04/08/19 14:47 SP TYPE: SEMAJ OSMAN DR: Dr. Ishmael Garrett MD Tissues: Gallbladder, NOS Procedures: Surgery Specimen Level III HEADER OPERATION: Laparoscopic cholecystectomy with IOC PRE-OP DIAGNOSIS: Calculus of gallbladder with chronic cholecystitis TISSUE SUBMITTED: Gallbladder MICROSCOPIC DIAGNOSIS Gallbladder, cholecystectomy: Chronic cholecystitis, cholelithiasis and focal cholesterolosis. SJ:miguel ángel 04/11/19 MICROSCOPIC DESCRIPTION Slides are reviewed. GROSS DESCRIPTION Received is one container labeled with the patient's name and designated gallbladder. The specimen consists of a gallbladder measuring 7.4 x 3.5 x 2 cm. The external surface is smooth and glistening. Focally, it is granular, hemorrhagic and contains cautery artifact. The lumen of the gallbladder contains yellow mucoid bile and multiple black calculi ranging in size from 0.3 to 1 cm in greatest dimension. The mucosa is bile-stained and without any mass lesions. The gallbladder wall averages 0.2 cm in thickness and is free of mass lesions. Sales Floor Associate sections of the gallbladder and the cystic duct are submitted in one cassette. / AM:miguel ángel 04/08/19 TC:3 CPT: 71914
--- NOTE | 2019-04-08 08:44 | EKG12_ITS ---
Test Reason : PRE OP Blood Pressure : / mmHG Vent. Rate : 057 BPM Atrial Rate : 057 BPM P-R Int : 166 ms QRS Dur : 098 ms QT Int : 446 ms P-R-T Axes : 063 -22 073 degrees QTc Int : 434 ms Sinus bradycardia Otherwise normal ECG When compared with ECG of 31-DEC-2018 02:08, No significant change was found Confirmed by AMANDEEP PAULA, ELMER ([id number]), legal editor IQRA ROSE ([id number]) on 04/12/2019 3:01:14 PM Referred By: Ubaldo Zaldivar Confirmed By:ELMER BERNSTEIN MD
[2019-04-08] MEDS: Lactated Ringers 1,000 ML 100 ML IV ×2 (09:45→13:57)
--- NOTE | 2019-04-08 10:41 | HP.PCM_ITS ---
Problem List (1) Cholelithiasis with chronic cholecystitis Status: Chronic Qualifiers: Cholelithiasis location: gallbladder Biliary obstruction: without biliary obstruction Qualified Code(s): K80.10 - Calculus of gallbladder with chronic cholecystitis without obstruction History and Physical Date of Admission: 04/08/19 Intake Visit Reasons: update h&p renzo tange [place] 11-8 Chief Complaint: update H&P for lap gale [employer] Management Intern Required: No Is patient in pain?: No Allergies No Known Allergies Allergy (Verified 04/04/19 08:24) Medications Ropinirole HCl [Requip] 1 mg PO DAILY 09/06/15 [History Confirmed 04/04/19] atorvastatin 20 mg tablet 20 mg PO QHS #90 tab 11/13/17 [Rx Confirmed 04/04/19] gemfibrozil 600 mg tablet 600 mg PO DAILY #90 tab 11/13/17 [Rx Confirmed 04/04/19] omeprazole 40 mg capsule,delayed release 40 mg PO DAILY #90 cap 11/13/17 [Rx Confirmed 04/04/19] aspirin 81 mg tablet,delayed release 81 mg PO QDAY 11/27/17 [History Confirmed 04/04/19] multivitamin tablet 1 tab PO QAM 11/27/17 [History Confirmed 04/04/19] metoprolol tartrate 25 mg tablet 12.5 mg PO BID #90 tab 02/03/19 [Rx Confirmed 04/04/19] lisinopril 20 mg tablet 20 mg PO BID #180 tab 03/08/19 [Rx Confirmed 04/04/19] [facility] Medical History (Updated 04/04/19 @ 08:24 by Mary Ellen Sears) Cholelithiasis with chronic cholecystitis (Chronic) Essential hypertension (Chronic) Atherosclerosis of coronary artery of [place] heart without angina pectoris (Chronic) Syncope and collapse (Chronic) Hyperlipidemia (Chronic) Cholelithiasis (Acute) Personal history of colonic polyps (Acute) GERD (gastroesophageal reflux disease) (Chronic) Obstructive sleep apnea (Chronic) Hypertension (Inactive) Surgical History (Updated 04/04/19 @ 08:24 by Mary Ellen Sears) H/O coronary artery bypass surgery (Chronic 09/11/15) History of colonoscopy (Acute ~03/2019) History of hemorrhoidectomy (Acute) Family History (Updated 02/28/19 @ 15:26 by Lida Magaña) Mother Arthritis Heart disease Father Cancer Social History (Updated 04/05/19 @ 14:54 by Cyndie Antoine PA-C) Smoking Status: Former smoker alcohol intake: current substance use type: does not use HPI HPI HPI: FLOYD HOWELL is a 73 M who presents to the office today for HPI HPI Surgical H&P: Yes HPI: FLOYD HOWELL, is a 73 M who presents to the office today for an update history and physical for an upcoming procedure. Patient notes he has had a col onoscopy by Dr. Arrieta last week. he had a polyp removed which was benign. It was recommended the patient repeat his colonoscopy in 5 years. Patient denies other hospitalizations or illnesses. Patient has previously had a quadruple bypass in 2016. Dr. Judge is his wheel loader operator. He is maintained on a baby ASA. Patient has had a previous ventral hernia repair at [facility]. Records could not be obtained. Patient denies previous complications with anesthesia. Patient's previous history per Dr. Zaldivar: FLOYD HOWELL, is a 73 M who presents to the office today for surgical consultation regarding gallstones. The patient is referred by his wheel loader operator Dr. Marquez Judge for surgical consultation regarding gallstones and suspected gallbladder disease. Written copy of my surgical consult recommendations will be returned to him as well as forwarded on to the patient's primary care physician Dr. Ishmael Garrett. 73-year-old gentleman who after eating [place] food he had a felt like tightness of his lower chest. He has had a previous history of syncope times 01 September 2015 which he eventuated and coronary bypass grafting x4. He did not have chest pain at that time. On this occasion he underwent cardiac evaluation with troponins negative chest x-ray unremarkable and stress test unremarkable for acute ischemia. When he saw his wheel loader operator Dr. Marquez Judge there was concerns about possible gallbladder disease. On February 16, 2019 the patient had a gallbladder ultrasound. Fatty change of the liver was noted. Gallstones were noted. The patient denies fever or chills or sweats or jaundice. He has not had any acute change in his bowel habits. He states that he recently has had a Cologuard test. He has never had a colonoscopy and he declines colonoscopy. Upon further questioning it is evident that he is previously had a ventral hernia repair he thinks approximately year 2003 in [place]. Unfortunately he is not able to identify the hospital of location so we cannot obtain records. He is not aware whether there would have been mesh placed. His laboratory on his emergency room visit of December 31, 2018 shows a white count of 7.5 with a hemoglobin 13.2 and hematocrit of 39 platelet count of 236,000 with normal differential. BUN is 27 creatinine 1.03. ROS General General: No weight change, appetite, fatigue, colon cancer, breast cancer or weakness HEENT HEENT: No difficulty swallowing, eye injury, eye surgery, swollen glands or hoarseness Endo Endocrine: No thyroid disease, diabetes mellitus, thyroid cancer, Hair loss, heat intolerance or cold intolerance Skin Skin: No rash or changing moles Breast Breast: No left breast lump, right breast lump, nipple discharge, breast pain, abnormal mammogram, abnormal US or breast enlargement Musc Musculoskeletal: No back problems, arthritis, rheumatoid arthritis, gout or joint pain Cardio Cardiovascular: Yes high blood pressure and heart attack; no murmur, pacemaker, heart disease, atrial fibrillation, heart stent, palpitations, shortness of breat with exertion or chest pain Psych Psychiatric: No depression, anxiety or hearing voices Resp Respiratory: No shortness of breath, No sleep apnea, No cough, No COPD, No asthma, No emphysema, No wheezing Gastro Gastrointestinal: No abdominal pain, No nausea or vomiting, No diarrhea, No constipation, No blood in stool, Yes acid reflux, No hemorrhoids, No ulcers, Yes gallbladder problem, No black,tarry stools Rudi Hematologic: No blood thinners, No blood disorders, No bleeding, No anemia, No blood clots Neuro Neurologic: No weakness Exam Const General: cooperative, healthy appearing, comfortable, no acute distress [facility] Head: normal to inspection Eyes General: appearance normal, both eyes and all related structures Chest Breast Palpation: No nipple discharge Resp Effort & Inspection: normal respiratory effort Auscultation: clear to auscultation bilaterally Cardio Rate: regular rate Rhythm: regular rhythm Heart Sounds: no murmurs GI Inspection: normal to inspection, obesity Palpation: soft Auscultation: normal bowel sounds Skin General: no rashes or lesions noted Neuro General: no focal motor deficits, CN's II-XI intact bilaterally Extrem General: normal to inspection Psych Appearance: grossly normal Affect: normal affect Assessment & Plan Problems 1. Calculus of gallbladder with chronic cholecystitis without obstruction K80.[address] Zaldivar will plan to perform a laparoscopic cholecystectomy with intraoperative cholangiogram. Procedure was reviewed including details, risks and benefits. Patient has had the opportunity to ask and have questions answered. Patient verbally understands and agrees with the plan. Patient to continue his aspirin. Per Dr. Zaldivar's last note: Consideration for placing incision more superior to the umbilicus and doing a dasia technique would be a consideration. Coding Level of Care Code No Charge Diagnoses Calculus of gallbladder with chronic cholecystitis without obstruction K80.10 ??Cholelithiasis location: gallbladder ??Biliary obstruction: without biliary obstruction Comment Update H&P 04/05/19 1454 <Electronically signed by Cyndie winchester PA-C> Date _ Cyndie Antoine PA-C Cosigner Signature: Date (if applicable) CC: ~ I have re-examined the patient. There are no clinical changes since date of exam.
[2019-04-08] MEDS: Cefazolin 2 GM in 0.9% Normal Saline 100 ML IV (10:49)
--- NOTE | 2019-04-08 10:55 | DCINST_ITS ---
Discharge Diet: Light diet - advance as tolerated - if you have questions about your diet instructions, please talk to you doctor. Discharge Activity: May Not Drive - for 3-5 days or while taking narcotic pain medicine. May shower in (days): 1 Lifting Restrictions: 10 pounds Call your doctor if your incision/area has: Continuous Slow Oozing, Sudden Increased Bleeding, Increased Pain/ Swelling, Increased Redness, Foul Smelling Discharge Call your doctor if you observe: Fever of 101 or Higher Suture Line Care: Avoid Pulling/Pushing, Avoid Pinching/Bending Additional Dressing/Incision Instructions:: Change or remove dressing in 4 days. Leave steri-strips in place for 1 week. Allergies/Adverse Reactions: Allergies No Known Allergies Allergy (Verified 04/04/19 08:24) Medications to take at Discharge Ropinirole HCl [Requip] 1 mg PO DAILY 09/06/15 atorvastatin 20 mg tablet 20 mg PO QHS #90 tab 11/13/17 gemfibrozil 600 mg tablet 600 mg PO DAILY #90 tab 11/13/17 omeprazole 40 mg capsule,delayed release 40 mg PO DAILY #90 cap 11/13/17 aspirin 81 mg tablet,delayed release 81 mg PO QDAY 11/27/17 multivitamin tablet 1 tab PO QAM 11/27/17 metoprolol tartrate 25 mg tablet 12.5 mg PO BID #90 tab 02/03/19 lisinopril 20 mg tablet 20 mg PO BID #180 tab 03/08/19 Primary Care Physician: Jesus Garrett MD [Primary Care Provider] - Test Results: Test results from this visit will be discussed in further detail at your follow- up appointment, if applicable. Please Follow Up With: Ubaldo Zaldivar MD - [phone] When: Call to make an appointment to be seen in about 10 days.
--- NOTE | 2019-04-08 11:10 | RAD_ITS ---
STUDY: INTRAOPERATIVE CHOLANGIOGRAM. REASON FOR EXAM: Male, 73 years old. Chronic cholecystitis. Cholelithiasis. FLUOROSCOPY TIME (if supplied): ( 24.2 seconds ) minutes/seconds. 76 images in a cine loop were obtained. TECHNIQUE: Intraoperative guidance performed by the surgeon. Imaging was submitted. COMPARISON: None. FINDINGS: The common bile duct is not dilated. No intraluminal filling defect is seen. There is free flow of contrast into the duodenum. RAD/Cholangiogram/ O R,Initial IMPRESSION: Unremarkable intraoperative cholangiogram. Electronically Signed: Geo Moreno, at 13:16 EST , Service support ,
--- NOTE | 2019-04-08 12:30 | OP.PCM_ITS ---
Problem List (1) Cholelithiasis with chronic cholecystitis Status: Chronic Qualifiers: Cholelithiasis location: gallbladder Biliary obstruction: without biliary obstruction Qualified Code(s): K80.10 - Calculus of gallbladder with chronic cholecystitis without obstruction Report of Operation Date of Procedure: 04/08/19 Pre-Operative Diagnosis: Chronic cholecystitis cholelithiasis Post-Operative Diagnosis: Same Surgery/Procedure Performed:: Laparoscopic cholecystectomy with cholangiograms Description of Surgical Findings:: Timeout and informed consent was obtained. 73-year-old gentleman was taken out from placement table underwent general endotracheal intubation and anesthesia. The abdomen was sterilely prepped and draped. Ancef 2 g were given intravenously preoperatively. 0.5% Marcaine was used as a local anesthetic. Throughout the procedure total 30 cc was used. Skin sites were pre-ane sthetized. A supraumbilical vertical incision was created. Holding sutures of 0 Vicryl placed sharp dissection carried down through the subtenons tissue. The fascia was incised. The peritoneum was incised. No evidence of any bowel involvement. 12 mm trocar was inserted. The abdomen is inspected no evidence of any superficial adhesions. No evidence of any trocar injury. Under direct physician 5 Alberto port was placed in the epigastric right mid upper quadrant and right lateral upper quadrant because of the patient's very bulbous distended abdomen. The liver was noted to have steatosis and was quite fatty. The gallbladder was grasped with adhesions of omentum to the gallbladder these had to be bluntly and sharply dissected free. Unfortunately because of the patient's body habitus with bulbous abdomen I could not get visualization to the infundibular area. So an additional 5 Alberto port was placed in the mid abdomen and a liver retractor was placed and that was used to help retract the transverse colon fatty omentum and get visualization of the infundibular area. Tedious blunt dissection was performed until clearly the hepatocystic angle was fully dissected free and the cystic duct and cystic artery identified. Hem-o-ajit clip was placed on the cystic duct at the infundibular area incision was made in this area cholangiogram catheter was removed and fluoroscopically control cholangiograms were obtained demonstrating free flow into the small bowel. I do not see any filling defects. There was reflux into the liver. The clench Shai catheter was removed and 2 hemo-lock clips were placed on the cystic duct stump prior to transecting it. The cystic artery was clipped twice proximally once distally prior to transecting it. The gallbladder was dissected free from the liver bed using electrocautery. Additional hemo-lock clip was used to secure some extra fibrofatty tissue. The gallbladder was completely released. There was no spillage. The liver bed was irrigated and aspirated free. A piece of fibrillar was placed in the liver bed to further assure hemostasis. The gallbladder was placed in a retrieval bag and exited at the umbilicus. The subhepatic space again inspected noted be hemostatic. All fluid and air was aspirated free. The trochars removed under visualization were visible. The abdomen was allowed to deflate of the CO2. The fascia at the supraumbilical area was closed with a [id number] suture of 0 Nurolon. Skin edges approximated interrupted 4 Monocryl subdermal stitches. Steri-Strips Telfa and OpSite dressings applied. Sponge and instrument and needle counts were reported the surgeon to be correct. Blood loss was minimal. Specimens gallbladder. Drains none. Blood loss minimal. Ubaldo Zaldivar M.D., F.A.C.S. Type of Anesthesia:: General Anesthesiologist: Berhane Gu
[2019-04-08] MEDS: Bupivacaine Mpf 0.5% 30 ML VIAL (12:35)
[2019-04-08] MEDS: Ketorolac 15 MG/ML Vial IV (14:33)
== END 2019-04-08 17:16 | disposition home or self-care (01) ==
LOC: SDC 08:31 → AC 08:32
PROVIDERS: Anesthesiology; Family Provider Family Medicine; PCP Family Medicine; Referring Provider Surgery; Visit Provider Surgery
PROC: (CPT 47610; principal; 2019-04-08 10:40)
DX: K80.10 Calculus of gallbladder with chronic cholecystitis without obstruction (principal); I10 Essential (primary) hypertension; I25.10 Atherosclerotic heart disease of native coronary artery without angina pectoris; E78.5 Hyperlipidemia, unspecified; K21.9 Gastro-esophageal reflux disease without esophagitis; G47.33 Obstructive sleep apnea (adult) (pediatric); Z87.891 Personal history of nicotine dependence; Z95.1 Presence of aortocoronary bypass graft; Z79.82 Long term (current) use of aspirin; Z79.899 Other long term (current) drug therapy
CPT/HCPCS: 47563; 36415; 74300; 76000; 80048; 85027; 88304; 93005; J7120; J2405

== ENCOUNTER → 2019-11-10 08:44 | Outpatient (CLI) | payer MEDICARE, SELFPAY ==
[2019-08-11 09:41] VITALS: BMI 32.5
[2019-11-10 09:47] LABS: AST(SGOT) 19 U/L (15-37); Alanine Aminotransfer ALT/SGPT 33 U/L (16-61); Albumin, Serum 3.9 g/dL (3.2-5.0); Alkaline Phosphatase 29 U/L (45-117); Bilirubin, Direct 0.19 mg/dL (0.00-0.30); Cholesterol 144 mg/dL (200); Globulin 3.5 g/dL (2.2-4.2); High Density Lipoprotein 50 mg/dL; Protein, Total 7.4 g/dL (6.4-8.2); Triglycerides 94 mg/dL; Very Low Density Lipoprotein 19 mg/dL (5-40)
[2019-11-10 09:53] LABS: ALB/GLOB Ratio 1.1 RATIO (0.9-2.4); AST(SGOT) 19 U/L (15-37); Alanine Aminotransfer ALT/SGPT 33 U/L (16-61); Albumin, Serum 3.9 g/dL (3.2-5.0); Alkaline Phosphatase 31 U/L (45-117); Anion Gap 6 (5-15); BUN 27 mg/dL (7-18); BUN/Creat Ratio 22.9 RATIO (10-20); Calcium,Total 8.9 mg/dL (8.5-10.1); Chloride 104 mmol/L (98-107); Creatinine, Serum 1.18 mg/dL (0.70-1.30); EST Glomerular Filtration Rate 64 mL/min (>60); Est Glom Filt Rate - Afr Amer 78 mL/min (>60); Globulin 3.5 g/dL (2.2-4.2); Glucose 107 mg/dL (74-106); PSA,Total - Annual Screen 2.38 ng/mL (0.00-4.00); Potassium 4.2 mmol/L (3.5-5.1); Protein, Total 7.4 g/dL (6.4-8.2); Sodium Level 138 mmol/L (136-145)
== END ==
PROVIDERS: PCP Family Medicine; Referring Provider Internal Medicine Cardiovascular Disease; Visit Provider Internal Medicine Cardiovascular Disease
DX: E78.5 Hyperlipidemia, unspecified (principal); I25.10 Atherosclerotic heart disease of native coronary artery without angina pectoris; N40.0 Benign prostatic hyperplasia without lower urinary tract symptoms
CPT/HCPCS: 36415; 80053; 80061; 80076; 84153; G0103

== ENCOUNTER → 2020-07-05 08:31 | Outpatient (CLI) | payer MEDICARE, SELFPAY ==
[2020-03-08 10:14] VITALS: BMI 33.5
[2020-07-05 09:23] LABS: AST(SGOT) 21 U/L (15-37); Alanine Aminotransfer ALT/SGPT 32 U/L (16-61); Alkaline Phosphatase 31 U/L (45-117); Bilirubin, Direct 0.15 mg/dL (0.00-0.30); Cholesterol 163 mg/dL (200); Globulin 3.4 g/dL (2.2-4.2); High Density Lipoprotein 59 mg/dL; Protein, Total 7.4 g/dL (6.4-8.2); Triglycerides 103 mg/dL; Very Low Density Lipoprotein 21 mg/dL (5-40)
== END ==
PROVIDERS: PCP Family Medicine; Referring Provider Nurse Practitioner Family; Visit Provider Nurse Practitioner Family
DX: E78.00 Pure hypercholesterolemia, unspecified (principal); E78.5 Hyperlipidemia, unspecified
CPT/HCPCS: 36415; 80061; 80076

== ENCOUNTER → 2021-03-01 09:55 | Outpatient (CLI) | payer MEDICARE, SELFPAY ==
[2021-03-01 11:15] LABS: AST(SGOT) 15 U/L (15-37); Alanine Aminotransfer ALT/SGPT 28 U/L (16-61); Albumin, Serum 3.8 g/dL (3.2-5.0); Alkaline Phosphatase 29 U/L (45-117); Cholesterol 154 mg/dL (200); Globulin 3.7 g/dL (2.2-4.2); High Density Lipoprotein 55 mg/dL; Protein, Total 7.5 g/dL (6.4-8.2); Triglycerides 93 mg/dL; Very Low Density Lipoprotein 19 mg/dL (5-40)
== END ==
PROVIDERS: Internal Medicine Cardiovascular Disease; PCP Family Medicine; Referring Provider Family Medicine; Visit Provider Family Medicine
DX: E78.00 Pure hypercholesterolemia, unspecified (principal)
CPT/HCPCS: 36415; 80061; 80076

== ENCOUNTER 2021-08-26 09:25 | Outpatient (CLI) | payer MEDICARE, SELFPAY ==
[2021-08-26 10:36] LABS: AST(SGOT) 23 U/L (15-37); Alanine Aminotransfer ALT/SGPT 35 U/L (16-61); Albumin, Serum 3.9 g/dL (3.2-5.0); Alkaline Phosphatase 28 U/L (45-117); Bilirubin, Direct 0.14 mg/dL (0.00-0.30); Cholesterol 154 mg/dL (200); Globulin 3.1 g/dL (2.2-4.2); High Density Lipoprotein 56 mg/dL; Triglycerides 98 mg/dL; Very Low Density Lipoprotein 20 mg/dL (5-40)
[2021-08-26 10:54] LABS: Anion Gap 7 (5-15); BUN 24 mg/dL (7-18); BUN/Creat Ratio 18.2 RATIO (10-20); Calcium,Total 9.3 mg/dL (8.5-10.1); Chloride 103 mmol/L (98-107); Creatinine, Serum 1.32 mg/dL (0.70-1.30); EST Glomerular Filtration Rate 56 mL/min (>60); Est Glom Filt Rate - Afr Amer 68 mL/min (>60); Glucose 113 mg/dL (74-106); PSA,Total - Annual Screen 1.72 ng/mL (0.00-4.00); Potassium 4.7 mmol/L (3.5-5.1); Sodium Level 136 mmol/L (136-145)
== END 2021-08-26 23:59 | disposition home or self-care (01) ==
LOC: MFPLAB 09:26
PROVIDERS: Internal Medicine Cardiovascular Disease; PCP Family Medicine; Visit Provider Family Medicine
DX: I25.10 Atherosclerotic heart disease of native coronary artery without angina pectoris (principal); E78.00 Pure hypercholesterolemia, unspecified; N40.0 Benign prostatic hyperplasia without lower urinary tract symptoms; Z12.5 Encounter for screening for malignant neoplasm of prostate
CPT/HCPCS: 36415; 80048; 80061; 80076; 84153; G0103

== ENCOUNTER → 2023-03-02 | Outpatient (CLI) | payer MEDICARE, SELFPAY ==
[2023-03-02 12:16] LABS: Hematocrit 45.6 % (40-54); Hemoglobin 15.2 g/dL (13.0-16.5); Mean Corp Hgb Conc 33.3 g/dL (32-36); Mean Corpuscular Hgb 31.1 pg (27.0-32.0); Mean Corpuscular Volume 93.4 fL (80-94); Mean Platelet Vol. 10.3 fl (6.2-12.0); Platelet Count 370 K/mm3 (150-450); RBC Distribution Width CV 13.2 % (11.6-14.6); RBC Distribution Width SD 45.1 fl (35.1-43.9); Red Blood Count 4.88 M/mm3 (4.6-6.2); White Blood Count 7.2 K/mm3 (4.4-11.0)
[2023-03-02 12:47] LABS: ALB/GLOB Ratio 1.1 RATIO (0.9-2.4); AST(SGOT) 18 U/L (15-37); Alanine Aminotransfer ALT/SGPT 31 U/L (16-61); Albumin, Serum 3.8 g/dL (3.2-5.0); Alkaline Phosphatase 43 U/L (45-117); Anion Gap 6 (5-15); BUN 22 mg/dL (7-18); BUN/Creat Ratio 19.1 RATIO (10-20); Calcium,Total 8.6 mg/dL (8.5-10.1); Chloride 104 mmol/L (98-107); Creatinine, Serum 1.15 mg/dL (0.70-1.30); EST Glomerular Filtration Rate 66 mL/min (>60); Est Glom Filt Rate - Afr Amer 79 mL/min (>60); Globulin 3.4 g/dL (2.2-4.2); Glucose 105 mg/dL (74-106); Protein, Total 7.2 g/dL (6.4-8.2); Sodium Level 136 mmol/L (136-145)
== END | disposition home or self-care (01) ==
PROVIDERS: PCP Family Medicine; Visit Provider Family Medicine
DX: I25.10 Atherosclerotic heart disease of native coronary artery without angina pectoris (principal)
CPT/HCPCS: 36415; 80053; 85027

== ENCOUNTER → 2023-08-13 | Outpatient (CLI) | payer MEDICARE, SELFPAY ==
[2023-08-13 13:55] LABS: ALB/GLOB Ratio 1.3 RATIO (0.9-2.4); AST(SGOT) 18 U/L (15-37); Alanine Aminotransfer ALT/SGPT 25 U/L (16-61); Albumin, Serum 3.9 g/dL (3.2-5.0); Alkaline Phosphatase 30 U/L (45-117); Anion Gap 6 (5-15); BUN 20 mg/dL (7-18); BUN/Creat Ratio 15.4 RATIO (10-20); Chloride 105 mmol/L (98-107); Cholesterol 151 mg/dL (200); EST Glomerular Filtration Rate 57 mL/min (>60); Est Glom Filt Rate - Afr Amer 69 mL/min (>60); Glucose 116 mg/dL (74-106); High Density Lipoprotein 57 mg/dL; Potassium 4.2 mmol/L (3.5-5.1); Protein, Total 6.9 g/dL (6.4-8.2); Sodium Level 138 mmol/L (136-145); Triglycerides 88 mg/dL; Very Low Density Lipoprotein 18 mg/dL (5-40)
--- OUTSIDE RECORDS SUMMARY | 2023-08-13 16:41 | XMS RPT_ITS | CCD ---
Author Name Unknown Address [id number] [place] [address] Organization [facility] Care Team Providers Care Downstairs Maid Name Role Phone DallasMeeki Unavailable Unavailable Francia Liu RN Unavailable Unavailable Medications Completed/Discontinued Medications Medication Drug Class(es) Dates Sig (Normalized) Sig (Original) acetaminophen 500 mg oral tablet (2 sources) Start: 09-28-2015 ACETAMINOPHEN 500 MG TABS (Tylenol) Take as directed ACETAMINOPHEN [id number] Zenaida Novak RN aspirin 81 mg oral tablet (4 sources) Nonsteroidal Anti-inflammatory Drug Start: 09-28-2015 take 1 tablet by mouth once daily ASPIRIN 81 MG TABS One tablet by mouth daily ASPIRIN [id number] Zenaida Novak RN Problems Active Problems Problem Classification Problem Date Documented Date Episodic/Chronic Coronary atherosclerosis and other heart disease (2 sources) Atherosclerotic heart disease of [place] coronary artery without angina pectoris; Translations: [Atherosclerotic heart disease of [place] coronary artery without angina pectoris] Onset: 09-28-2015 09-28-2015 Chronic Disorders of lipid metabolism (2 sources) Hyperlipidemia; Translations: [Hyperlipidemia, unspecified] Onset: 09-28-2015 09-28-2015 Chronic Essential hypertension (2 sources) Hypertensive disorder; Translations: [Essential (primary) hypertension] Onset: 09-28-2015 09-28-2015 Chronic Genitourinary symptoms and ill-defined conditions (1 source) Blood in urine Onset: 03-31-2022 Episodic Unclassified (4 sources) Body mass index (BMI) 31.0-31.9, adult; Translations: [Obstructive sleep apnea syndrome] Onset: 09-28-2015 10-20-2016 Chronic Unclassified (2 sources) 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; Translations: [Presence of aortocoronary bypass graft] Onset: 09-28-2015 10-16-2016 Unclassified (2 sources) Long-term drug therapy; Translations: [Other intermediate manager (current) drug therapy] Onset: 09-28-2015 09-28-2015 Past or Other Problems Problem Classification Problem Date Documented Da te Episodic/Chronic Coronary atherosclerosis and other heart disease (2 sources) Presence of aortocoronary bypass graft; Translations: [Presence of aortocoronary bypass graft] Onset: 09-28-2015 09-28-2015 Episodic Syncope (2 sources) Syncope and collapse; Translations: [Syncope and collapse] Onset: 09-28-2015 09-28-2015 Episodic Unclassified (2 sources) Body mass index (BMI) 27.0-27.9, adult; Translations: [Body mass index (BMI) 27.0-27.9, adult] Onset: 10-08-2015 10-08-2015 Episodic Results Test Name Value Interpretation Reference Range Facil ity Vital Signs Date Time Vital Sign Value Performing Clinician Tamie strong 04-27-2017 13:47-0500 BMI (Body Mass Index) 31.4 kg/m2 [facility] [employer] Work Phone: 04-27-2017 13:47-0500 BP Diastolic 60 mm[Hg] Tanika Hoff [employer] Work Phone: 04-27-2017 13:47-0500 BP Systolic 136 mm[Hg] Tanika Hoff [employer] Work Phone: 04-27-2017 13:47-0500 Height 179.07 cm Tanika Hoff [employer] Work Phone: 04-27-2017 13:47-0500 Pulse (Heart Rate) 60 /min Tanika Hfof [employer] Work Phone: 04-27-2017 13:47-0500 Respiratory Rate 16 /min Tanika Hoff [employer] Work Phone: 04-27-2017 13:47-0500 Weight 100.7 kg [email or web address] Work Phone: 10-20-2016 08:15-0400 BMI (Body Mass Index) 31.68 kg/m2 Francia Liu RN [facility] Work Phone: 10-20-2016 08:15-0400 BP Diastolic 74 mm[Hg] Francia Liu RN [facility] Work Phone: 10-20-2016 08:15-0400 BP Systolic 140 mm[Hg] Francia Liu RN [facility] Work Phone: 10-20-2016 08:15-0400 Height 179.07 cm Francia Liu RN [facility] Work Phone: 10-20-2016 08:15-0400 Pulse (Heart Rate) 54 /min Francia Liu RN [facility] Work Phone: 10-20-2016 08:15-0400 Respiratory Rate 18 /min Francia Liu RN [facility] Work Phone: 10-20-2016 08:15-0400 Weight 101.61 kg Francia Liu RN [facility] Work Phone: 04-18-2016 13:48-0500 BSA (Body Surface Area) 2.14 m2 Francia Liu RN [facility] Work Phone: 10-08-2015 10:11-0400 Body Temperature 97.2 [degF] Francia Liu RN [facility] Work Phone: Encounters Encounter Date Encounter Type Care Provider Facility Start: 03-31-2022 End: 03-31-2022 Emergency department patient visit [facility] Procedures Date Procedure Procedure Detail Performing Clinician Start: 04-27-2017 End: 04-27-2017 DJN Marquez Judge MD Work Phone: Start: 04-27-2017 End: 04-27-2017 Follow Up Appt 6 months Marquez Judge MD Work Phone: Start: 01-12-2017 End: 01-23-2017 *Hepatic Function Panel Marquez Judge MD Work Phone: Start: 01-12-2017 End: 01-23-2017 Lipid 1996 panel - Serum or Plasma Marquez Judge MD Work Phone: Start: 10-20-2016 End: 10-20-2016 DANILO Judge MD Work Phone: Start: 10-20-2016 End: 10-20-2016 Follow Up Appt 6 months Marquez Judge MD Work Phone: Start: 07-11-2016 End: 07-14-2016 *Hepatic Function Panel Amando Reich Start: 07-11-2016 End: 07-14-2016 Lipid 1996 panel - Serum or Plasma Jonathan Alicia MD Start: 04-18-2016 End: 04-18-2016 DANILO Judge MD Work Phone: Start: 04-18-2016 End: 04-18-2016 Follow Up Appt 6 months Marquez Judge MD Work Phone: Start: 10-08-2015 End: 01-15-2016 *Hepatic Function Panel Marquez Judge MD Work Phone: Start: 10-08-2015 End: 10-08-2015 DANILO Judge MD Work Phone: Start: 10-08-2015 End: 10-08-2015 Follow Up Appt 6 months Marquez Judge MD Work Phone: Start: 10-08-2015 End: 01-15-2016 Lipid 1996 panel - Serum or Plasma Marquez Judge MD Work Phone: Start: 10-08-2015 End: 10-09-2015 Referral to edm operator Marquez Judge MD Work Phone: Start: 09-28-2015 End: 10-01-2015 *BMP Marquez Judge MD Work Phone: Start: 09-28-2015 End: 10-01-2015 *CBC with Differential Marquez Judge MD Work Phone: Start: 09-28-2015 End: 10-01-2015 Ecg routine ecg w/least 12 lds w/i&r Marquez Judge MD Work Phone: Start: 09-28-2015 End: 04-11-2016 Xtrnl mobile cv telemetry w/i&report 30 days Marquez Judge MD Work Phone: Plan of Treatment Date Care Activity Detail Author Start: 11-19-2017 End: 11-19-2017 Appointment Appointment [facility] Work Phone: Start: 07-20-2017 End: 01-23-2017 *Hepatic Function Panel *Hepatic Function Panel [facility] Work Phone: Start: 07-20-2017 End: 01-23-2017 Lipid panel [AGGREGATE] *Lipid Profile CC PCP [facility] Work Phone: Start: 04-27-2017 End: 04-27-2017 Appointment Appointment [facility] Work Phone: Start: 04-27-2017 End: 04-27-2017 DANILO CARRASCO [facility] Work Phone: Start: 04-27-2017 End: 04-27-2017 Follow Up Appt 6 months Follow Up Appt 6 months [facility] Work Phone: Start: 01-12-2017 End: 01-23-2017 *Hepatic Function Panel *Hepatic Function Panel [facility] Work Phone: Start: 01-12-2017 End: 01-23-2017 Lipid panel [AGGREGATE] *Lipid Profile CC PCP [facility] Work Phone: Start: 10-20-2016 End: 10-20-2016 DANILO CARRASCO [facility] Work Phone: Start: 10-20-2016 End: 10-20-2016 Follow Up Appt 6 months Follow Up Appt 6 months [facility] Work Phone: Start: 07-11-2016 End: 07-14-2016 *Hepatic Function Panel *Hepatic Function Panel [facility] Work Phone: Start: 07-11-2016 End: 07-14-2016 Lipid panel [AGGREGATE] *Lipid Profile CC PCP [facility] Work Phone: Start: 04-18-2016 End: 04-18-2016 DANILO CARRASCO [facility] Work Phone: Start: 04-18-2016 End: 04-18-2016 Follow Up Appt 6 months Follow Up Appt 6 months [facility] Work Phone: Start: 10-08-2015 End: 01-15-2016 *Hepatic Function Panel *Hepatic Function Panel [facility] Work Phone: Start: 10-08-2015 End: 04-18-2016 [facility] [address] [place], [address] [facility] Work Phone: Start: 10-08-2015 End: 10-08-2015 DANILO CARRASCO [facility] Work Phone: Start: 10-08-2015 End: 10-08-2015 Follow Up Appt 6 months Follow Up Appt 6 months [facility] Work Phone: Start: 10-08-2015 End: 01-15-2016 Lipid panel [AGGREGATE] *Lipid Profile CC PCP [facility] Work Phone: Start: 09-28-2015 End: 10-01-2015 *BMP *BMP [facility] Work Phone: Start: 09-28-2015 End: 10-01-2015 *CBC with Differential *CBC with Differential [facility] Work Phone: Start: 09-28-2015 End: 10-01-2015 Ecg routine ecg w/least 12 lds w/i&r EKG (In office) [facility] Work Phone: Start: 09-28-2015 End: 09-28-2015 Xtrnl mobile cv telemetry w/i&report 30 days 30 Day Holter Monitor [facility] Work Phone: Patient Education [facility] Work Phone: Summary Purpose Family History No Family History Records FoundNo Family History Records Found Advance Directives No Advanced Directives Records FoundNo Advanced Directives Records Found Additional Source Comments (unrecognized sect ion and content) No Status Records FoundNo Status Records Found INFORMATION SOURCE (unrecogn ized section and content) DATE CREATED AUTHOR AUTHOR'S ORGANIZ ATION 04/03/2022 [facility] FOR RECORDS PERTAINING TO PATIENTS WHO ARE OR HAVE BEEN ENROLLED IN A CHEMICAL DEPENDENCY/SUBSTANCEABUSE PROGRAM, SOME INFORMATION MAY BE OMITTED. This clinical summary was aggregated from multiple sources. Caution should be exercised in using it in the provision of clinical care. This summary normalizes information from multiple sources, and as a consequence, information in this document may materially change the coding, format and clinical context of patient data. In addition, data may be omitted in some cases. CLINICAL DECISIONS SHOULD BE BASED ON THE PRIMARY CLINICAL RECORDS. [employer] [facility]. provides no warranty or guarantee of the accuracy or completeness of information in this document.
== END | disposition home or self-care (01) ==
LOC: MFPLAB 10:05
PROVIDERS: PCP Family Medicine; Visit Provider Family Medicine
DX: I25.10 Atherosclerotic heart disease of native coronary artery without angina pectoris (principal)
CPT/HCPCS: 36415; 80053; 80061

== ENCOUNTER → 2023-08-31 | Outpatient (CLI) | payer MEDICARE, SELFPAY ==
[2023-08-31 12:41] LABS: Anion Gap 7 (5-15); BUN 19 mg/dL (7-18); BUN/Creat Ratio 14.6 RATIO (10-20); Calcium,Total 9.4 mg/dL (8.5-10.1); Chloride 101 mmol/L (98-107); EST Glomerular Filtration Rate 57 mL/min (>60); Est Glom Filt Rate - Afr Amer 69 mL/min (>60); Glucose 123 mg/dL (74-106); Potassium 4.3 mmol/L (3.5-5.1); Sodium Level 137 mmol/L (136-145)
== END | disposition home or self-care (01) ==
LOC: MFPLAB 10:47
PROVIDERS: PCP Family Medicine; Visit Provider Family Medicine
DX: I10 Essential (primary) hypertension (principal)
CPT/HCPCS: 36415; 80048

== ENCOUNTER → 2023-11-09 | Outpatient (CLI) | payer MEDICARE, SELFPAY ==
--- NOTE | 2023-11-09 12:42 | RAD_ITS ---
STUDY: X-RAY - LEFT KNEE REASON FOR EXAM: Male, 78 years old. Left knee pain. No history of injury. TECHNIQUE: 4 view(s) of the knee. COMPARISON: None. FINDINGS: Normal visualized distal femur. Normal visualized proximal tibia and fibula. Normal proximal tibiofibular articulation. Normal medial femorotibial compartment. Normal lateral femorotibial compartment. There is mild degenerative arthrosis of the patellofemoral articulation. The soft tissue structures are unremarkable. RAD/Knee 4 or More Views IMPRESSION: Degenerative arthrosis. Electronically Signed: Geo Moreno MD at 12:59 EDT ,
== END | disposition home or self-care (01) ==
PROVIDERS: PCP Family Medicine; Referring Provider Family Medicine; Visit Provider Family Medicine
DX: M25.562 Pain in left knee (principal)
CPT/HCPCS: 73564

== ENCOUNTER → 2023-11-30 | Outpatient (CLI) | payer MEDICARE, SELFPAY ==
[2023-11-30 15:47] LABS: Anion Gap 7 (5-15); BUN 29 mg/dL (7-18); BUN/Creat Ratio 20.7 RATIO (10-20); Calcium,Total 9.2 mg/dL (8.5-10.1); Chloride 104 mmol/L (98-107); EST Glomerular Filtration Rate 52 mL/min (>60); Est Glom Filt Rate - Afr Amer 63 mL/min (>60); Glucose 102 mg/dL (74-106); Potassium 4.4 mmol/L (3.5-5.1); Sodium Level 137 mmol/L (136-145)
== END | disposition home or self-care (01) ==
LOC: MFPLAB 10:56
PROVIDERS: PCP Family Medicine; Visit Provider Family Medicine
DX: I10 Essential (primary) hypertension (principal)
CPT/HCPCS: 36415; 80048

== ENCOUNTER → 2024-03-16 | Outpatient (CLI) | payer MEDICARE, SELFPAY ==
[2024-03-16 15:20] LABS: Absolute Lymphocyte Count 1.57 X10^3/uL (0.83-4.51); Basophil# 0.04 X10^3/uL; Basophil% 0.6 % (0-1); Eosinophil# 0.35 X10^3/uL; Eosinophils% 5.2 % (0-5); Hemoglobin 15.6 g/dL (13.0-16.5); Lymphocyte # 1.57 X10^3/ul (0.83-4.51); Lymphocyte % 23.5 % (19-41); Mean Corp Hgb Conc 33.9 g/dL (32-36); Mean Corpuscular Hgb 31.1 pg (27.0-32.0); Mean Corpuscular Volume 91.6 fL (80-94); Mean Platelet Vol. 10.5 fl (6.2-12.0); Monocyte# 0.66 X10^3/uL; Monocyte% 9.9 % (0-10); NRBC Flagged by Analyzer 0 % (0-5); Neutrophil # 4.04 X10^3/uL (2.7-7.7); Neutrophil % 60.5 % (47-70); Platelet Count 331 K/mm3 (150-450); RBC Distribution Width CV 12.9 % (11.6-14.6); RBC Distribution Width SD 43.2 fl (35.1-43.9); Red Blood Count 5.02 M/mm3 (4.6-6.2); White Blood Count 6.7 K/mm3 (4.4-11.0)
[2024-03-16 15:38] LABS: ALB/GLOB Ratio 1.1 RATIO (0.9-2.4); AST(SGOT) 16 U/L (15-37); Alanine Aminotransfer ALT/SGPT 27 U/L (16-61); Albumin, Serum 3.7 g/dL (3.2-5.0); Alkaline Phosphatase 36 U/L (45-117); Anion Gap 6 (5-15); BUN 19 mg/dL (7-18); BUN/Creat Ratio 15.2 RATIO (10-20); Calcium,Total 9.3 mg/dL (8.5-10.1); Chloride 106 mmol/L (98-107); Cholesterol 154 mg/dL (200); Creatinine, Serum 1.25 mg/dL (0.70-1.30); EST Glomerular Filtration Rate 59 mL/min (>60); Est Glom Filt Rate - Afr Amer 72 mL/min (>60); Globulin 3.3 g/dL (2.2-4.2); Glucose 134 mg/dL (74-106); High Density Lipoprotein 54 mg/dL; Iron 181 ug/dL (65-175); Sodium Level 138 mmol/L (136-145); Triglycerides 173 mg/dL; Very Low Density Lipoprotein 35 mg/dL (5-40)
[2024-03-23 17:07] LABS: PTHIN 36 pg/mL (15-65)
== END | disposition home or self-care (01) ==
PROVIDERS: PCP Family Medicine; Referring Provider Family Medicine; Visit Provider Family Medicine
DX: Z00.00 Encounter for general adult medical examination without abnormal findings (principal); N18.31 Chronic kidney disease, stage 3a; E78.5 Hyperlipidemia, unspecified
CPT/HCPCS: 36415; 80053; 80061; 82306; 83540; 83970; 85025

== ENCOUNTER → 2024-08-29 | Outpatient (CLI) | payer MEDICARE, SELFPAY ==
--- NOTE | 2024-08-29 12:50 | CDU_ITS ---
Reason For Study Reason For Study: Left carotid bruit Rt. Velocities/BP Lt. Velocities/BP Prox CCA 157.6/13.3 cm/sec. Prox CCA 126.6/11.5 cm/sec. Mid CCA 135.7/13.3 cm/sec. Mid CCA 112.1/13.9 cm/sec. Dist CCA 121.1/13.3 cm/sec. Dist CCA 87.6/13.9 cm/sec. Prox ICA 97.4/13.3 cm/sec. Prox ICA 93.7/9.7 cm/sec. Mid ICA 101.1/16.3 cm/sec. Mid ICA 106.5/18.8 cm/sec. Dist ICA 94.9/18.8 cm/sec. Dist ICA 126.6/17 cm/sec. Rt. ICA/CCA = 0.75. Lt. ICA/CCA = 1.13. Prox ECA 177.7/9.7 cm/sec. Prox ECA 259.6/4.2 cm/sec. Rt. Vert. 60.5/11.4 cm/sec. Lt. Vert. 37.2/7.3 cm/sec. Right Extracranial There is homogeneous, smooth atherosclerotic plaque noted in the right common carotid artery. There is heterogeneous, irregular atherosclerotic plaque noted in the right internal carotid artery. There is heterogeneous, irregular atherosclerotic plaque noted in the right external carotid artery. Antegrade flow is noted in the right vertebral artery. Left Extracranial There is homogeneous, smooth atherosclerotic plaque noted in the left common carotid artery. There is heterogeneous, irregular atherosclerotic plaque noted in the left internal carotid artery. There is heterogeneous, irregular atherosclerotic plaque noted in the left external carotid artery. Antegrade flow is noted in the left vertebral artery. Procedure Carotid Duplex [id number]. This is a Carotid Duplex examination using B-mode, color flow and specral Doppler. Exam performed in department. VL/Carotid Duplex Ultrasound Interpretation Summary Mild (<50%) stenosis right extracranial internal carotid. Moderate (50-69%) stenosis left extracranial internal carotid. Patent and antegrade vertebrals bilaterally. Ordering Physician: Dario Ashley Referring Physician: Ishmael Garrett MD Performed By: Keila Nevarez RVT
== END | disposition home or self-care (01) ==
LOC: CVS 12:50
PROVIDERS: PCP Family Medicine; Referring Provider Internal Medicine Cardiovascular Disease; Visit Provider Internal Medicine Cardiovascular Disease
DX: R09.89 Other specified symptoms and signs involving the circulatory and respiratory systems (principal)
CPT/HCPCS: 93880

== ENCOUNTER → 2024-12-19 | Outpatient (CLI) | payer MEDICARE, SELFPAY ==
[2024-12-19 12:43] LABS: Hematocrit 43.4 % (40-54); Hemoglobin 14.8 g/dL (13.0-16.5); Mean Corp Hgb Conc 34.1 g/dL (32-36); Mean Corpuscular Volume 92.1 fL (80-94); Mean Platelet Vol. 10.5 fl (6.2-12.0); Platelet Count 343 K/mm3 (150-450); RBC Distribution Width CV 12.6 % (11.6-14.6); RBC Distribution Width SD 43.2 fl (35.1-43.9); Red Blood Count 4.71 M/mm3 (4.6-6.2); White Blood Count 7.6 K/mm3 (4.4-11.0)
[2024-12-19 13:14] LABS: PTHIN 31 pg/mL (11-61)
[2024-12-19 13:34] LABS: AST(SGOT) 22 U/L (<=37); Alanine Aminotransfer ALT/SGPT 21 U/L (<=46); Albumin, Serum 4.4 g/dL (3.4-4.8); Alkaline Phosphatase 42 U/L (40-129); Anion Gap 12 (5-15); BUN 26 mg/dL (4-19); BUN/Creat Ratio 17.4 RATIO (10-20); Calcium,Total 9.8 mg/dL (7.6-11.0); Carbon Dioxide 24.7 mmol/L (21.0-32.0); Chloride 99 mmol/L (98-108); Cholesterol 147 mg/dL (<=200); Globulin 2.8 g/dL (2.2-4.2); Glucose 119 mg/dL (70-99); Low Density Lipoprotein Calc. 76 mg/dL; Potassium 4.7 mmol/L (3.3-5.1); Triglycerides 115 mg/dL; Very Low Density Lipoprotein 23 mg/dL (5-40); cholesterol:hdl ratio screen 3.03
[2024-12-19 13:35] LABS: Vitamin D,25 Hydroxy 52.4 ng/mL (30-100)
--- OUTSIDE RECORDS SUMMARY | 2024-12-19 20:20 | XMS RPT_ITS | CCD ---
Author Organization [facility] Care Team Providers Care Defensive Driving Instructor Name Role Phone Tanika Haynes Unavailable Unavailable Alexa RN, Francia Singh Unavailable Unavailable Dr. Jesus Garrett Primary Care Provider Dr. Jesus Garrett Referring Provider Dr. Dario Ashley Attending Provider [phone] Tami PAULA, Dr. Quiñones Primary Care Provider Tami PAULA, Dr. Quiñones Referring Provider Dr. Dario Ashley MD Attending Provider Dr. Dario Ashley MD Referring Provider Julita PAULA, Dr. Rangel Attending Provider [phone] Ishmael Garrett Attending Unavailable Ishmael Garrett Primary Care Unavailable Ishmael Garrett Primary Care Unavailable Ishmael Garrett Attending Unavailable Ishmael Garrett Referring Unavailable Ishmael Garrett Referring Unavailable Ishmael Garrett Primary Care Unavailable Vivek Woods NP Attending Unavailable Dario Ashley Referring Unavailable Orquidea Soto Attending Unavailable Ishmael Garrett Primary Care Unavailable Juan Carlos Cancino Attending Unavailable Dario Ashley Referring Unavailable Ishmael Garrett Primary Care Unavailable Dario Ashley Attending Unavailable Ishmael Garrett Referring Unavailable Ishmael Garrett Primary Care Unavailable Dario Ashley Referring Unavailable Ishmael Garrett Primary Care Unavailable Dario Ashley Attending Unavailable Ishmael Garrett Attending Unavailable Ishmael Garrett Referring Unavailable Ishmael Garrett Primary Care Unavailable Medications Current Medications Medication Drug Class(es) Dates Sig (Normalized) Sig (Original) aspirin 81 mg delayed release oral tablet (8 sources) Nonsteroidal Anti-inflammatory Drug Start: 11-27-2017 take 1 tablet by mouth once daily Aspirin (Adult Aspirin Regimen) 81 mg tablet,delayed release (DR/EC) Active 81 mg PO daily November 27, 2017 12:00am Start: 09-28-2015 take 1 tablet by laly th once daily ASPIRIN 81 MG TABS One tablet by mouth daily ASPIRIN [id number] Zenaida Novak RN Start: 09-28-2015 take 1 tablet by laly th once daily ASPIRIN EC 81 MG TBEC One tablet by mouth daily ASPIRIN [id number] Imani Hyde RN atorvastatin 20 mg oral tablet (10 sources) HMG-CoA Reductase Inhibitor Start: 09-06-2015 End: 11-13-2017 take 1 tablet by mouth at bedtime Atorvastatin 20 mg tablet Active 20 mg PO AT BEDTIME November 13, 2017 3:22pm gemfibrozil 600 mg oral tablet (12 sources) Peroxisome Proliferator Receptor alpha Agonist Start: 09-28-2015 take 1 tablet by mouth twice daily GEMFIBROZIL 600 MG TABS One tablet by mouth twice daily GEMFIBROZIL [id number] Zenaida Novak RN Start: 09-06-2015 End: 11-13-2017 take 1 tablet by mouth once daily Gemfibrozil 600 mg tablet Active 600 mg PO DAILY November 13, 2017 3:22pm hydroCHLOROthiazide 12.5 mg oral tablet (1 source) Thiazide Diuretic Start: 12-22-2023 take 1 tablet by mouth once daily Hydrochlorothiazide 12.5 mg tablet Active 12.5 mg PO daily December 22, 2023 12:00am lisinopril 20 mg oral tablet (20 sources) Angiotensin Converting Enzyme Inhibitor Start: 02-10-2019 End: 07-12-2024 take 1 tablet by mouth twice daily Lisinopril 20 mg tablet Active 20 mg PO TWICE A DAY July 12, 2024 11:11am Start: 01-27-2019 End: 02-10-2019 take 2 tablets by mouth twice daily Lisinopril 5 mg tablet Discontinued 10 mg PO TWICE A DAY January 27, 2019 3:39pm February 10, 2019 10:36am Start: 01-27-2019 End: 02-10-2019 take 10 mg by mouth twice daily Lisinopril Discontinue d 10 MG PO TWICE A DAY January 27, 2019 3:39pm February 10, 2019 10:36am Start: 12-30-2018 End: 01-27-2019 take 2 tablets by mouth once daily Lisinopril 5 MG tablet Discontinued 10 mg PO DAILY December 30, 2018 12:00am January 27, 2019 3:39pm Start: 12-30-2018 End: 01-27-2019 take 10 mg by mouth once daily Lisinopril Discontinued 10 MG PO DAILY December 30, 2018 12:00am January 27, 2019 3:39pm Start: 09-28-2015 End: 09-28-2015 take 1 tablet by mouth once daily LISINOPRIL 5 MG TABS One tablet by mouth daily LISINOPRIL [id number] Zenaida Novak RN Start: 09-06-2015 End: 11-27-2017 take 1 tablet by mouth once daily Lisinopril 10 MG tablet Discontinued 10 mg PO DAILY September 06, 2015 12:00am November 27, 2017 11:47am Multivitamin preparation (3 sources) Start: 11-27-2017 take 1 tablet by mouth once daily in the morning Multivitamin Active 1 TABLET PO EVERY MORNING November 27, 2017 11:48am Start: 11-27-2017 take 1 tablet by laly th once daily in the morning Multivitamin Active 1 TABLET PO EVERY MORNING November 27, 2017 12:00am Multivitamin tablet (1 source) Start: 11-27-2017 Multivitamin t ablet Active 1 {tbl} PO EVERY MORNING November 27, 2017 12:00am nystatin 100 unt/mg topical powder (4 sources) Polyene Antifungal Start: 09-06-2021 End: 12-22-2023 Nystatin 100,000 unit/gram powder Active 1 NMA TOPICAL TWICE A DAY as needed December 22, 2023 2:10pm Start: 09-06-2021 Nystatin Activ e 1 APPLIC TOPICAL TWICE A DAY September 06, 2021 12:00am omeprazole 40 mg delayed release oral capsule (10 sources) Proton Pump Inhibitor Start: 09-06-2015 End: 11-13-2017 take 1 capsule by mouth once daily Omeprazole 40 mg capsule,delayed release(DR/EC) Active 40 mg PO DAILY November 13, 2017 3:22pm rOPINIRole 1 mg oral tablet (6 sources) Nonergot Dopamine Agonist Start: 09-06-2015 take 1 tablet by mouth once daily Ropinirole 1 MG tablet Active 1 mg PO DAILY September 06, 2015 12:00am Completed/Discontinued Medications Medication Drug Class(es) Dates Sig (Normalized) Sig (Original) acetaminophen 500 mg oral tablet (2 sources) Start: 09-28-2015 ACETAMINOPHEN 500 MG TABS (Tylenol) Take as directed ACETAMINOPHEN [id number] Zenaida Novak RN acetaminophen 325 mg / HYDROcodone bitartrate 5 mg oral tablet (4 sources) Opioid Agonist Start: 04-08-2019 End: 04-13-2019 Hydrocodone-Acetamin ophen 1 TABLET tablet Discontinued 1 {tbl} PO EVERY 6 HOURS NEEDED as needed for Pain 03 03April 08, 2019 April 10, 2019 1:00am April 13, 2019 1:07am Start: 04-08-2019 End: 04-13-2019 take 1 tablet by mouth every six hours as needed Hydrocodone-Acetaminophen Discontinued 1 TABLET PO EVERY 6 HOURS NEEDED 10 April 08, 2019 April 13, 2019 1:07am carvedilol 3.125 mg oral tablet (20 sources) alpha-Adrenergic Emiliano, beta-Adrenergic Emiliano Start: 08-11-2019 End: 04-12-2024 take 1 tablet by mouth twice daily at mealtime Carvedilol 3.125 mg tablet Discontinued 3.125 mg PO TWICE A DAY 180 April 12, 2024 9:53am April 12, 2024 10:09am must administer with a meal/food clopidogrel 75 mg oral tablet (4 sources) P2Y12 Platelet Inhibitor Start: 09-28-2015 End: 04-18-2016 take 1 tablet by mouth once daily CLOPIDOGREL BISULFATE 75 MG TABS One tablet by mouth daily CLOPIDOGREL BISULFATE [id number] Salome Zavala ibuprofen 400 mg oral tablet (4 sources) Nonsteroidal Anti-inflammatory Drug Start: 09-28-2015 End: 10-08-2015 take 1 tablet by mouth every six hours IBUPROFEN 400 MG TABS One tablet by mouth every 6 hours IBUPROFEN [id number] Marquez Judge MD metoprolol tartrate 25 mg oral tablet (14 sources) beta-Adrenergic Emiliano Start: 11-27-2017 End: 08-11-2019 Metoprolol Tartrate 25 mg tablet Discontinued 12.5 mg PO TWICE A DAY 90 February 03, 2019 2:27pm August 11, 2019 10:19am Start: 11-27-2017 End: 08-11-2019 take 12.5 mg by mouth twice daily Metoprolol Tartrate Discontinued 12.5 MG PO TWICE A DAY 90 February 03, 2019 2:27pm August 11, 2019 10:19am Start: 09-28-2015 take 1 tablet by laly twice daily METOPROLOL TARTRATE 25 MG TABS One half tablet by mouth twice daily METOPROLOL TARTRATE [id number] Marquez Judge MD MULTIPLE VITAMIN (2 sources) Start: 09-28-2015 take 1 tablet by mouth once daily MULTIVITAMINS TABS One tablet by mouth daily MULTIPLE VITAMIN Zenaida Novak RN oxyCODONE hydrochloride 5 mg oral tablet (4 sources) Opioid Agonist Start: 09-28-2015 End: 10-08-2015 take 1 tablet by mouth every four hours as needed for pain OXYCODONE HCL 5 MG TABS 1 tablet by mouth Q4H as needed for severe pain OXYCODONE HCL [id number] Marquez Judge MD Problems Active Problems Problem Classification Problem Date Documented Date Episodic/Chronic Biliary tract disease (4 sources) Calculus of gallbladder with cholecystitis; Translations: [Calculus of gallbladder with chronic cholecystitis without obstruction] 02-28-2019 Episodic Cardiac dysrhythmias (5 sources) Bradycardia; Translations: [Bradycardia, unspecified] Onset: 07-22-2024 11-21-2022 Episodic Coronary atherosclerosis and other heart disease (9 sources) Atherosclerotic heart disease of [place] coronary artery without angina pectoris; Translations: [Coronary atherosclerosis] Onset: 09-28-2015 09-28-2015 Chronic Comment on above: CABG x 4 Sequential XIE-LAD and D1, SVG-High Lat Cx, SVG-Cx 09/11/15 no symptoms. Disorders of lipid metabolism (9 sources) Hyperlipidemia; Translations: [Hyperlipidemia, unspecified] Onset: 09-28-2015 09-28-2015 Chronic Comment on above: [facility]. Essential hypertension (14 sources) Hypertensive disorder; Translations: [Essential hypertension] Onset: 09-28-2015 09-28-2015 Chronic Genitourinary symptoms and ill-defined conditions (1 source) Blood in urine Onset: 03-31-2022 Episodic Nonspecific chest pain (5 sources) Chest pain at rest; Translations: [Chest pain, unspecified] Onset: 07-22-2024 12-31-2018 Episodic Other circulatory disease (1 source) Other specified symptoms and signs involving the circulatory and respiratory systems; Translations: [Other specified symptoms and signs involving the circulatory and respiratory systems] Onset: 08-31-2024 Episodic Other screening for suspected conditions (not mental disorders or infectious disease) (4 sources) Cardiovascular stress test abnormal; Translations: [Abnormal result of other cardiovascular function study] 12-31-2018 Episodic Syncope (11 sources) Syncope and collapse; Translations: [Syncope] Onset: 09-28-2015 09-28-2015 Episodic Unclassified (4 sources) Body mass index (BMI) 31.0-31.9, adult; Translations: [Obstructive sleep apnea syndrome] Onset: 09-28-2015 10-20-2016 Chronic Unclassified (2 sources) 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; Translations: [Presence of aortocoronary bypass graft] Onset: 09-28-2015 10-16-2016 Unclassified (2 sources) Long-term drug therapy; Translations: [Other director long term care (current) drug therapy] Onset: 09-28-2015 09-28-2015 Past or Other Problems Problem Classification Problem Date Documented Da te Episodic/Chronic Coronary atherosclerosis and other heart disease (2 sources) Presence of aortocoronary bypass graft; Translations: [Presence of aortocoronary bypass graft] Onset: 09-28-2015 09-28-2015 Episodic Other non-traumatic joint disorders (1 source) Pain in left knee; Translations: [Pain in left knee] Onset: 11-20-2023 Episodic Unclassified (2 sources) Body mass index (BMI) 27.0-27.9, adult; Translations: [Body mass index (BMI) 27.0-27.9, adult] Onset: 10-08-2015 10-08-2015 Episodic Results Test Name Value Interpretation Reference Range Facility Maria Dolores 09-21-2024 /DAVE [facility] [address] [place] [address] OFFICE VISIT Date of Service: 09/21/24 MR#: [id number] Acct: [id number] Name: FLOYD HOWELL Rep #: [id number] : 1945 Provider: WOLF Ye Age/Sex: 79/M Location: [facility] Status: Signed Intake Vital Signs 07/22/24 11:05 09/21/24 11:25 Height 5 ft 10 in Weight: 226 lb 224 lb 2 oz BMI 32.4 BP 155/75 H 132/75 H Blood Pressure Location Lt brachial Lt brachial Position Sitting Sitting Respiration 18 17 Pulse 51 L 50 L Pulse Source Monitor Monitor Temp 98.4 F Temp Source Temporal Pulse Oximetry (%) 97 98 Oxygen Delivery Method room air room air Intake Visit Reasons: Carotid Artery Stenosis Chief Complaint: New Patient Carotid Artery Statement Clerks Manager Required: No Is patient in pain?: No Allergies No Known Allergies Allergy (Verified 07/22/24 11:06) Have you fallen in the past year?: No PFSH Medical History (Updated 09/21/24 @ 15:23 by WOLF Ye) Broken leg ( 1981) Personal history of colonic polyps Cholelithiasis with chronic cholecystitis Cholelithiasis Essential hypertension GERD (gastroesophageal reflux disease) Obstructive sleep apnea Atherosclerosis of coronary artery of [place] heart without angina pectoris Syncope and collapse Hypertension Hyperlipidemia Surgical History (Updated 09/21/24 @ 11:13 by Kasie Bolaños) History of laparoscopic cholecystectomy ( 04/08/19) History of colonoscopy ( 2019) History of hemorrhoidectomy H/O coronary artery bypass surgery (09/11/15) Family History (Updated 09/21/24 @ 11:13 by Kasie Bolaños) Mother Arthritis Heart disease Father Cancer Lung Cancer Social History Smoking Status: Former smoker how long ago did patient quit smokin alcohol intake: current alcohol intake frequency: holidays/special occasions only substance use type: does not use caffeine: Yes Type: coffee Number of servings: 4 HPI HPI HPI: FLOYD HOWELL, is a 79 M who presents to the office today for evaluation of carotid artery stenosis as referred from the G Dr. Ashley. He recently had carotid duplex demonstrating <50% R ICA stenosis and 50-69% L ICA stenosis. He denies any history of CVA or TIA. He denies any episodes of focal neurologic symptoms such as unilateral weakness/sensory deficits, monocular vision loss, dysarthria, facial droop. He denies any history of prior carotid intervention, peripheral revascularization, VTE, nonhealing wounds, claudication. He takes ASA 81mg and atorvastatin 20mg daily. His medical history is otherwise significant for CABG x 4 (2016), HTN, sinus bradycardia. ROS General General: No weight change, appetite, fatigue, colon cancer, breast cancer or weakness HEENT HEENT: No difficulty swallowing, eye injury, eye surgery, swollen glands or hoarseness Endo Endocrine: No thyroid disease, diabetes mellitus, thyroid cancer, Hair loss, heat intolerance or cold intolerance Skin Skin: No rash or changing moles Musc Musculoskeletal: No back problems, arthritis, rheumatoid arthritis, gout or joint pain Cardio Cardiovascular: Yes high blood pressure; No murmur, pacemaker, heart disease, atrial fibrillation, heart attack, heart stent, palpitations, shortness of breath with exertion or chest pain Psych Psychiatric: No depression, anxiety or hearing voices Resp Respiratory: No shortness of breath, No sleep apnea, No cough, No COPD, No asthma, No emphysema and No wheezing Gastro Gastrointestinal: No abdominal pain, No nausea or vomiting, No diarrhea, No constipation, No blood in stool, No acid reflux, No hemorrhoids, No ulcers, No gallbladder problem and No black,tarry stools Rudi Hematologic: No blood thinners, No blood disorders, No bleeding, No anemia and No blood clots Neuro Neurologic: No system reviewed and no additional complaints, except as documented, No as per HPI, No abnormal gait, No abnormal hearing, No abnormal movements, No abnormal speech, No behavioral changes, No burning sensations, No confusion, No convulsions, No disequilibrium, No dizziness, No localized weakness, No frequent falls, No headache(s), No lack of coordination, No loss of vision, No memory loss, No numbness, No other visual disturbances, No radicular pain, Yes restless legs, No sensory deficit, No syncope, No tingling, No tremor(s), No weakness and No other Exam Const General: cooperative, comfortable and no acute distress Orientation: alert, awake and oriented x3 HENMT Head: normal to inspection, normocephalic and atraumatic Ears: hearing grossly normal bilaterally and external ears normal Nose: external nose normal Eyes General: appearance normal, both eyes and all related structures E (more content not included)... Normal [facility] Carotid Duplex Ultrasoundon 08-29-2024 Carotid Duplex Ultrasound [facility] [place] [address] Carotid Duplex Ultrasound 08/29/24 1254 MR#: [id number] Acct: [id number] Name: FLOYD HOWELL Rep #: [id number] : 1945 79 From: Juan Carlos Cancino MD Attending Dr: Dr. Dario Ashley MD Status: RE G CLI Ordering Dr: Dario Ashley MD Date: 08/29/24 Location: [facility] Sex: M C Admitted: Reason For Study Reason For Study: Left carotid bruit Rt. Velocities/BP Lt. Velocities/BP Prox CCA 157.6/13.3 cm/sec. Prox CCA 126.6/11.5 cm/sec. Mid CCA 135.7/13.3 cm/sec. Mid CCA 112.1/13.9 cm/sec. Dist CCA 121.1/13.3 cm/sec. Dist CCA 87.6/13.9 cm/sec. Prox ICA 97.4/13.3 cm/sec. Prox ICA 93.7/9.7 cm/sec. Mid ICA 101.1/16.3 cm/sec. Mid ICA 106.5/18.8 cm/sec. Dist ICA 94.9/18.8 cm/sec. Dist ICA 126.6/17 cm/sec. Rt. ICA/CCA = 0.75. Lt. ICA/CCA = 1.13. Prox ECA 177.7/9.7 cm/sec. Prox ECA 259.6/4.2 cm/sec. Rt. Vert. 60.5/11.4 cm/sec. Lt. Vert. 37.2/7.3 cm/sec. Right Extracranial There is homogeneous, smooth atherosclerotic plaque noted in the right common carotid artery. There is heterogeneous, irregular atherosclerotic plaque noted in the right internal carotid artery. There is heterogeneous, irregular atherosclerotic plaque noted in the right external carotid artery. Antegrade flow is noted in the right vertebral artery. Left Extracranial There is homogeneous, smooth atherosclerotic plaque noted in the left common carotid artery. There is heterogeneous, irregular atherosclerotic plaque noted in the left internal carotid artery. There is heterogeneous, irregular atherosclerotic plaque noted in the left external carotid artery. Antegrade flow is noted in the left vertebral artery. Procedure Carotid Duplex [id number]. This is a Carotid Duplex examination using B-mode, color flow and specral Doppler. Exam performed in department. VL/Carotid Duplex Ultrasound Interpretation Summary Mild (<50%) stenosis right extracranial internal carotid. Moderate (50-69%) stenosis left extracranial internal carotid. Patent and antegrade vertebrals bilaterally. Ordering Physician: Dario Ashley Referring Physician: Ishmael Garrett MD Performed By: Keila Nevarez Elijah 08/29/24 1507 Date Juan Carlos Cancino MD CC: Dr. Ishmael Garrett MD; Dr. Dario Ashley MD Date Dictated: 08/29/24 1254 Date Transcribed: 08/29/24 1507 Property Clerk: Signed Normal [facility] Duplex ultrasound of carotid artery reportOrdered By: Juan Carlos Cancino on 08-29-2024 Study report [facility] [address] [place] [address] Carotid Duplex Ultrasound 08/29/24 1254 MR#: [id number] Acct: [id number] Name: FLOYD HOWELL Rep #:[id number] : 1945 79 From: Juan Carlos Thompson Attending Dr: Dr. Dario Ashley MD Status: REG CLI Ordering Dr: Dario Ashley MD Date: 08/29/24 Location: [facility] Sex: M C Admitted: Reason For Study Reason For Study: Left carotid bruit Rt. Velocities/BP Lt. Velocities/BP Prox CCA 157.6/13.3 cm/sec. Prox CCA 126.6/11.5 cm/sec. Mid CCA 135.7/13.3 cm/sec. Mid CCA 112.1/13.9 cm/sec. Dist CCA 121.1/13.3 cm/sec. Dist CCA 87.6/13.9 cm/sec. Prox ICA 97.4/13.3 cm/sec. Prox ICA 93.7/9.7 cm/sec. Mid ICA 101.1/16.3 cm/sec. Mid ICA 106.5/18.8 cm/sec. Dist ICA 94.9/18.8 cm/sec. Dist ICA 126.6/17 cm/sec. Rt. ICA/CCA = 0.75. Lt. ICA/CCA = 1.13. Prox ECA 177.7/9.7 cm/sec. Prox ECA 259.6/4.2 cm/sec. Rt. Vert. 60.5/11.4 cm/sec. Lt. Vert. 37.2/7.3 cm/sec. Right Extracranial There is homogeneous, smooth atherosclerotic plaque noted in the right common carotid artery. There is heterogeneous, irregular atherosclerotic plaque noted in the right internal carotid artery. There is heterogeneous, irregular atherosclerotic plaque noted in the right external carotid artery. Antegrade flow is noted in the right vertebral artery. Left Extracranial There is homogeneous, smooth atherosclerotic plaque noted in the left common carotid artery. There is heterogeneous, irregular atherosclerotic plaque noted in the left internal carotid artery. There is heterogeneous, irregular atherosclerotic plaque noted in the left external carotid artery. Antegrade flowis noted in the left vertebral artery. Procedure Carotid Duplex [id number]. This is a Carotid Duplex examination using B-mode, color flow and specral Doppler. Exam performed in department. VL/Carotid Duplex Ultrasound Interpretation Summary Mild (<50%) stenosis right extracranial internal carotid. Moderate (50-69%) stenosis left extracranial internal carotid. Patent and antegrade vertebrals bilaterally. Ordering Physician: Dario Ashley Referring Physician: Ishmael Garrett MD Performed By: Keila Nevarez RVT 08/29/24 1507 Date _ Juan Carlos Cancino MD CC: Dr. Ishmael Garrett MD; Dr. Dario Ashley MD ~ Date Dictated: 08/29/24 1254 Date Transcribed: 08/29/24 150 Property Clerk: Signed [facility] Work Phone: 12 Lead EKG performed by [facility] on 07-22-2024 12 Lead EKG performed by [facility] [address] [place] [address] 12 Lead EKG performed by [facility] 07/22/24 1317 MR#: [id number] Acct: [id number] Name: FLOYD HOWELL Rep #: [id number] : 1945 79 From: Dario Ashley MD Attending Dr: Dr. Dario Ashley MD Status: DE P AMB Ordering Dr: Dario Ashley MD Date: 07/22/24 Location: [facility] Sex: M C Admitted: [facility]/12 Lead EKG performed by [facility] ECG Report Interpretation ------Sinus Bradycardia -Left axis -anterior fascicular block. - Nonspecific T-abnormality. ABNORMAL Electronically signed on 07/22/2024 at 12:[address] Dario Ashley [employer] Version [id number] 07/22/24 1216 Date Dario Ashley MD CC: Dr. Ishmael Garrett MD Date Dictated: 07/22/241316 Date Transcribed: 07/22/241316 Property Clerk: Signed Normal [facility] Cardiology Visit Reporton Cardiology Visit Report [facility] [address] [place] [address] OFFICE VISIT Date of Service: 07/22/24 MR#: [id number] Acct: [id number] Name: FLOYD HOWELL Rep #: [id number] : 1945 Provider: Dr. Dario walker MD Age/Sex: 79/M Location: [facility] Status: Signed HPI HPI History of Present Illness Details: Patient is a 79-year-old white male that comes in today for monitoring of his cardiovascular status. The patient has known coronary disease status post coronary bypass graft surgery at [facility] 2016 received a XIE sequential graft to the LAD and diagonal a vein graft to the lateral circumflex and a vein graft to the high lateral circumflex. The patient's presenting complaint was a syncopal spell which she has had no recurrence of. The patient does have a history of hypertension which has been well-controlled in his home environment usually runs in the mid 130s over 70s. Has a history of hyperlipidemia which is well-controlled on medical therapy. And he carries a history of bradycardia. EKG in the office today shows sinus bradycardia 52 bpm with a left anterior fascicular block and nonspecific ST-T wave changes with an LVH appearing pattern. It does not meet the criteria for LVH. The patient denies any syncope or near syncope denies any dizziness denies any PND orthopnea he has some chronic sock line lower extremity edema status post vein graft harvesting site. He is fairly active in his home environment without restrictions. Patient denies any palpitations he does occasionally get some shortness of breath usually when he is walking long distances. This is unchanged from prior symptoms. The patient denies any TIA or CVA type symptoms. Intake Vital Signs 12/22/23 14:06 07/22/24 11:05 Height 5 ft 10 in 5 ft 10 in Weight: 220 lb 226 lb BMI 31.5 32.4 BP 153/59 H 155/75 H Blood Pressure Location Lt brachial Lt brachial Position Sitting Sitting Respiration 18 18 Pulse 42 L 51 L Pulse Source NIBP Monitor Pulse Oximetry (%) 97 Oxygen Delivery Method room air Intake Visit Reasons: 6 M FU Statement Clerks Manager Required: No Accompanied by: Self Is patient in pain?: No Allergies No Known Allergies Allergy (Verified 07/22/24 11:06) Medications ???Medication ???Instructions ???Recorded ???Confirmed ???Type ropinirole 1 mg tablet 1 mg PO DAILY restless legs 07/22/24 History atorvastatin 20 mg tablet 20 mg PO QHS #90 tabs 11/13/17 Rx gemfibrozil 600 mg tablet 600 mg PO DAILY #90 tabs 11/13/17 07/22/24 Rx omeprazole 40 mg capsule,delayed 40 mg PO DAILY #90 caps 11/13/17 0 07/22/24 Rx release aspirin 81 mg tablet,delayed 81 mg PO QDAY heart [facility] 8 07/22/24 History release (Adult Aspirin Regimen) multivitamin 1 tab PO QAM vitamin 11/27/1707/03 History hydrochlorothiazide 12.5 mg tablet 12.5 mg PO QDAY 12/22/23 5 History nystatin 100,000 unit/gram topical 1 applic topical BID PRN 4 07/22/24 History powder carvedilol 3.125 mg tablet 3.125 mg PO BID #180 tabs 04/12/24 07/22/24 Rx lisinopril 20 mg tablet 20 mg PO BID #180 tabs 07/12/24 Rx Have you fallen in the past year?: No PFSH Medical History Personal history of colonic polyps Cholelithiasis with chronic cholecystitis Cholelithiasis Essential hypertension GERD (gastroesophageal reflux disease) Obstructive sleep apnea Atherosclerosis of coronary artery of [place] heart without angina pectoris Syncope and collapse Hypertension Hyperlipidemia Surgical History History of laparoscopic cholecystectomy ( 04/08/19) History of colonoscopy ( 03/2019) History of hemorrhoidectomy H/O coronary artery bypass surgery (09/11/15) Family History Mother Arthritis Heart disease Father Cancer Social History Smoking Status: Former smoker how long ago did patient quit smokin alcohol intake: current alcohol intake frequency: holidays/special occasions only substance use type: does not use caffeine: Yes Type: coffee Number of servings: 4 ROS Const Const: Negative for fatigue or weakness ENT ENT: Negative for dizziness or balance problems Cardio Chest Pain: No Palpitations: No Edema: Bilateral (more in left ankle) Muscle aches with walking: None Resp Respiratory: Negative for SOB with activity, SOB at rest or SOB orthopnea SOB lying down GI GI: Negative nausea, vomiting or heartburn Musc Musc: Negative for muscle weakness or balance problems Neuro Neuro: Negative for dizziness, lightheadedne (more content not included)... Normal [facility] L5000.0015on 03-23-2024 PTHIN 36 pg/mL Normal 15-65 [facility] Comment on above: Performed By: #### L 100.0100, L500.4100, L503.6150, L3300.0940, L5000.0015, L500.4050 #### [facility] [address] [place], [address] L3300.0940on 03-22-2024 VIT D,25 HYDROX 32.6 ng/mL Normal 30.0-100.0 [facility] Comment on above: Result Comment: Regine min D deficiency has been defined by the Harmon of Medicine and an Endocrine Society practice guideline as a level of serum 25-OH vitamin D less than 20 ng/mL (1,2). The Endocrine Society went on to further define vitamin D insufficiency as a level between 21 and 29 ng/mL (2). 1. IOM ([place]armon of Medicine). 2010. Dietary reference intakes for calcium and D. [place]: The National Academies Press. 2. Arnaldo EPSTEIN, Eulalia BARRIGA, Allyson CHEATHAM, et al. Evaluation, treatment, and prevention of vitamin D deficiency: an Endocrine Society clinical practice guideline. JCEM. 2010; 96(7):1911-30. Performed at: [address] [id number] Property Condition Assessor: Bertin Arteaga PhD, Phone: [phone] Performed By: #### L 100.0100, L500.4100, L503.6150, L3300.0940, L5000.0015, L500.4050 #### [facility] [address] [place], [address] CBC W/Diff, Automatedon 10-1 Absolute Lymph 1.57 X10 3/uL Normal 0.83-4.51 [facility] Comment on above: Performed By: #### L 100.0100, L500.4100, L503.6150, L3300.0940, L5000.0015, L500.4050 #### [facility] [address] [place], [address] Absolute Neut 4.0 X10 3/uL Normal 2.0-7.7 [facility] Comment on above: Performed By: #### L 100.0100, L500.4100, L503.6150, L3300.0940, L5000.0015, L500.4050 #### [facility] [address] [place], [address] Basophils/100 WBC (Bld) 0.6 % Normal 0-1 [facility] Comment on above: Performed By: #### L 100.0100, L500.4100, L503.6150, L3300.0940, L5000.0015, L500.4050 #### [facility] [address] [place], [address] Eosinophils/100 WBC (Bld) 5.2 % High 0-5 [facility] Comment on above: Performed By: #### L 100.0100, L500.4100, L503.6150, L3300.0940, L5000.0015, L500.4050 #### [facility] [address] [place], [address] Erythrocyte distribution width (RBC) [Ratio] 12.9 % Normal 11.6-14.6 [facility] Comment on above: Performed By: #### L 100.0100, L500.4100, L503.6150, L3300.0940, L5000.0015, L500.4050 #### [facility] [address] [place], [address] Hematocrit (Bld) [Volume fraction] 46.0 % Normal 40-54 [facility] Comment on above: Performed By: #### L 100.0100, L500.4100, L503.6150, L3300.0940, L5000.0015, L500.4050 #### [facility] [address] [place], [address] Hemoglobin (Bld) [Mass/Vol] 15.6 g/dL Normal 13.0-16.5 [facility] Comment on above: Performed By: #### L 100.0100, L500.4100, L503.6150, L3300.0940, L5000.0015, L500.4050 #### [facility] [address] [place], [address] IG% 0.300 Normal 0.0-0.9 [facility] Comment on above: Result Comment: IG% - Immature Granulocytes (promyelocytes, myelocytes and metamyelocytes) > 1% indicates that a LEFT SHIFT is Present. Performed By: #### L 100.0100, L500.4100, L503.6150, L3300.0940, L5000.0015, L500.4050 #### [facility] [address] [place], [address] Lymphocytes/100 WBC (Bld) 23.5 % Normal 19-41 [facility] Comment on above: Performed By: #### L 100.0100, L500.4100, L503.6150, L3300.0940, L5000.0015, L500.4050 #### [facility] [address] [place], [address] MCH (RBC) [Entitic mass] 31.1 pg Normal 27.0-32.0 [facility] Comment on above: Performed By: #### L 100.0100, L500.4100, L503.6150, L3300.0940, L5000.0015, L500.4050 #### [facility] [address] [place], [address] MCHC (RBC) [Mass/Vol] 33.9 g/dL Normal 32-36 [facility] Comment on above: Performed By: #### L 100.0100, L500.4100, L503.6150, L3300.0940, L5000.0015, L500.4050 #### [facility] [address] [place], [address] MCV (RBC) [Entitic vol] 91.6 fL Normal 80-94 [facility] Comment on above: Performed By: #### L 100.0100, L500.4100, L503.6150, L3300.0940, L5000.0015, L500.4050 #### [facility] [address] [place], [address] Monocytes/100 WBC (Bld) 9.9 % Normal 0-10 [facility] Comment on above: Performed By: #### L 100.0100, L500.4100, L503.6150, L3300.0940, L5000.0015, L500.4050 #### [facility] [address] [place], [address] Neutrophils/100 WBC (Bld) 60.5 % Normal 47-70 [facility] Comment on above: Performed By: #### L 100.0100, L500.4100, L503.6150, L3300.0940, L5000.0015, L500.4050 #### [facility] [address] [place], [address] Nucleated RBC (Bld) [#/Vol] 0 10*3/uL Normal 0-5 [facility] Comment on above: Performed By: #### L 100.0100, L500.4100, L503.6150, L3300.0940, L5000.0015, L500.4050 #### [facility] [address] [place], [address] Platelet mean volume (Bld) [Entitic vol] 10.5 fL Normal 6.2-12.0 [facility] Comment on above: Performed By: #### L 100.0100, L500.4100, L503.6150, L3300.0940, L5000.0015, L500.4050 #### [facility] [address] [facility] [place], [address] Platelets (Bld) [#/Vol] 331 10*3/uL Normal 150-450 [facility] Comment on above: Performed By: #### L 100.0100, L500.4100, L503.6150, L3300.0940, L5000.0015, L500.4050 #### [facility] [address] [place], [address] RBC (Bld) [#/Vol] 5.02 10*6/uL Normal 4.6-6.2 [facility] Comment on above: Performed By: #### L 100.0100, L500.4100, L503.6150, L3300.0940, L5000.0015, L500.4050 #### [facility] [address] [place], [address] RDW SD 43.2 fl Normal 35.1-43.9 [facility] Comment on above: Performed By: #### L 100.0100, L500.4100, L503.6150, L3300.0940, L5000.0015, L500.4050 #### [facility] [address] [place], [address] WBC (Bld) [#/Vol] 6.7 10*3/uL Normal 4.4-11.0 [facility] Comment on above: Performed By: #### L 100.0100, L500.4100, L503.6150, L3300.0940, L5000.0015, L500.4050 #### [facility] [address] [place], [address] Comprehensive Metabolic Prof ilon 03-16-2024 Albumin [Mass/Vol] 3.7 g/dL Normal 3.2-5.0 [facility] Comment on above: Performed By: #### L 100.0100, L500.4100, L503.6150, L3300.0940, L5000.0015, L500.4050 #### [facility] [address] [place], [address] Albumin/Globulin [Mass ratio] 1.1 {ratio} Normal 0.9-2.4 [facility] Comment on above: Performed By: #### L 100.0100, L500.4100, L503.6150, L3300.0940, L5000.0015, L500.4050 #### [facility] [address] [place], [address] ALK P 36 U/L Low 45-117 [facility] Comment on above: Performed By: #### L 100.0100, L500.4100, L503.6150, L3300.0940, L5000.0015, L500.4050 #### [facility] [address] [place], [address] ALT [Catalytic activity/Vol] 27 U/L Normal 16-61 [facility] Comment on above: Performed By: #### L 100.0100, L500.4100, L503.6150, L3300.0940, L5000.0015, L500.4050 #### [facility] [address] [place], [address] AST [Catalytic activity/Vol] 16 U/L Normal 15-37 [facility] Comment on above: Performed By: #### L 100.0100, L500.4100, L503.6150, L3300.0940, L5000.0015, L500.4050 #### [facility] [address] [place], [address] Bilirubin [Mass/Vol] 0.60 mg/dL Normal 0.20-1.00 [facility] Comment on above: Result Comment: For patients on eltrombopag therapy, use of Dimension [place] TBIL is not recommended. Performed By: #### L 100.0100, L500.4100, L503.6150, L3300.0940, L5000.0015, L500.4050 #### [facility] [address] [place], [address] BUN/CRE 15.2 RATIO Normal 10-20 [facility] Comment on above: Performed By: #### L 100.0100, L500.4100, L503.6150, L3300.0940, L5000.0015, L500.4050 #### [facility] [address] [place], [address] CA,Total 9.3 mg/dL Normal 8.5-10.1 [facility] Comment on above: Performed By: #### L 100.0100, L500.4100, L503.6150, L3300.0940, L5000.0015, L500.4050 #### [facility] [address] [place], [address] Chloride [Moles/Vol] 106 mmol/L Normal 98-107 [facility] Comment on above: Performed By: #### L 100.0100, L500.4100, L503.6150, L3300.0940, L5000.0015, L500.4050 #### [facility] [address] [place], [address] CO2 [Moles/Vol] 26.0 mmol/L Normal 21.0-32.0 [facility] Comment on above: Performed By: #### L 100.0100, L500.4100, L503.6150, L3300.0940, L5000.0015, L500.4050 #### [facility] [address] [place], [address] Creatinine [Mass/Vol] 1.25 mg/dL Normal 0.70-1.30 [facility] Comment on above: Result Comment: The validity of the calculated GFR GFRAA in patients over 70 years has not been determined. Clinical correlation is essential. Performed By: #### L 100.0100, L500.4100, L503.6150, L3300.0940, L5000.0015, L500.4050 #### [facility] [address] [place], [address] EST GFR - AA 72 mL/min Normal >60 [facility] Comment on above: Result Comment: Afri can Kazakh GFR Calc Performed By: #### L 100.0100, L500.4100, L503.6150, L3300.0940, L5000.0015, L500.4050 #### [facility] [address] [place], [address] GAP 6 Normal 5-15 [facility] Comment on above: Performed By: #### L 100.0100, L500.4100, L503.6150, L3300.0940, L5000.0015, L500.4050 #### [facility] [address] [place], [address] GFR/1.73 sq M.predicted among non-blacks MDRD (S/P/Bld) [Vol rate/Area] 59 mL/min/{1.73_m2} Low >60 [facility] Comment on above: Result Comment: Non- GFR Calc Performed By: #### L 100.0100, L500.4100, L503.6150, L3300.0940, L5000.0015, L500.4050 #### [facility] [address] [place], [address] Globulin (S) [Mass/Vol] 3.3 g/dL Normal 2.2-4.2 [facility] Comment on above: Performed By: #### L 100.0100, L500.4100, L503.6150, L3300.0940, L5000.0015, L500.4050 #### [facility] [address] [place], [address] Glucose [Mass/Vol] 134 mg/dL High 74-106 [facility] Comment on above: Result Comment: Fast ing Glucose result greater than or equal to 126 mg/dL suggests DIABETES MELLITUS per A.D.A. criteria. Performed By: #### L 100.0100, L500.4100, L503.6150, L3300.0940, L5000.0015, L500.4050 #### [facility] [address] [place], [address] Potassium [Moles/Vol] 4.0 mmol/L Normal 3.5-5.1 [facility] Comment on above: Performed By: #### L 100.0100, L500.4100, L503.6150, L3300.0940, L5000.0015, L500.4050 #### [facility] [address] [place], [address] Sodium [Moles/Vol] 138 mmol/L Normal 136-145 [facility] Comment on above: Performed By: #### L 100.0100, L500.4100, L503.6150, L3300.0940, L5000.0015, L500.4050 #### [facility] [address] [place], [address] T PROT 7.0 g/dL Normal 6.4-8.2 [facility] Comment on above: Performed By: #### L 100.0100, L500.4100, L503.6150, L3300.0940, L5000.0015, L500.4050 #### [facility] [address] [place], [address] Urea nitrogen [Mass/Vol] 19 mg/dL High 7-18 [facility] Comment on above: Performed By: #### L 100.0100, L500.4100, L503.6150, L3300.0940, L5000.0015, L500.4050 #### [facility] [address] [place], [address] Ironon 03-16-2024 Iron [Mass/Vol] 181 ug/dL High 65-175 [facility] Comment on above: Performed By: #### L 100.0100, L500.4100, L503.6150, L3300.0940, L5000.0015, L500.4050 #### [facility] [address] [place], [address] Lipid Profileon 03-16-2024 Cholesterol [Mass/Vol] 154 mg/dL Normal 200 [facility] Comment on above: Result Comment: <200 mg/dL Desirable 200-240 mg/dL Borderline >240 mg/dL High Risk Performed By: #### L 100.0100, L500.4100, L503.6150, L3300.0940, L5000.0015, L500.4050 #### [facility] [address] [place], [address] Cholesterol in HDL [Mass/Vol] 54 mg/dL Normal [facility] Comment on above: Result Comment: The drugs N-Acetylcysteine and Metamizole may falsely depress this assay. Reference Range HDL <40 mg/dL Low HDL Cholesterol HDL >or= 60 mg/dL High HDL Cholesterol Performed By: #### L 100.0100, L500.4100, L503.6150, L3300.0940, L5000.0015, L500.4050 #### [facility] [address] [place], [address] Cholesterol in LDL [Mass/Vol] 65 mg/dL Normal 0-130 [facility] Comment on above: Performed By: #### L 100.0100, L500.4100, L503.6150, L3300.0940, L5000.0015, L500.4050 #### [facility] [address] [place], [address] Cholesterol in VLDL [Mass/Vol] 35 mg/dL Normal 5-40 [facility] Comment on above: Performed By: #### L 100.0100, L500.4100, L503.6150, L3300.0940, L5000.0015, L500.4050 #### [facility] [address] [place], [address] Triglyceride [Mass/Vol] 173 mg/dL Normal [facility] Comment on above: Result Comment: The drugs N-Acetylcysteine and Metamizole may falsely depress this assay. Serum Triglycerides Reference Interval Normal <150 mg/dL Borderline high 150 - 199 mg/dL High 200 - 499 mg/dL Very High > or = 500 mg/dL Performed By: #### L 100.0100, L500.4100, L503.6150, L3300.0940, L5000.0015, L500.4050 #### [facility] [address] [place], [address] 12 Lead EKG performed by [facility] on 12-22-2023 12 Lead EKG performed by [facility] [address] [place] [address] 12 Lead EKG performed by [facility] 12/22/23 1430 MR#: [id number] Acct: [id number] Name: FLOYD HOWELL Rep #: [id number] : 1945 78 From: Vivek PERRY Attending Dr: VICKY Cruz Status: DEP AMB Ordering Dr: Vivek Woods NP Date: 12/22/23 Location: [facility] Sex: M C Admitted: BMS/12 Lead EKG performed by [facility] ECG Report Interpretation ------Sinus Bradycardia -Left axis -anterior fascicular block. - Nonspecific T-abnormality. ABNORMAL Electronically signed on 12/28/2023 at 12:[address] Dario Lara Software Version 8610 12/28/23 1229 Date Vivek Woods NP [employer] ACCESSORIES INSTALLER-C CC: Dr. Ishmael Garrett MD Date Dictated: 12/22/23 1430 Date Transcribed: 12/22/230 Property Clerk: CHANTELLE Signed Normal [facility] Cardiology Visit Reporton Cardiology Visit Report [facility] [address] [place] [address]. [address] [place] [address] OFFICE VISIT Date of Service: 12/22/23 MR#: [id number] Acct: [id number] Name: FLOYD HOWELL Rep #: [id number] : 1945 Provider: VICKY de los santos Age/Sex: 78/M Location: [facility] Status: Signed HPI HPI History of Present Illness Details: This is a 78-year-old white male who presents today for an outpatient cardiovascular follow-up visit. He has a history of CAD, CABG (XIE to the LAD with a bridge to the diagonal branch, SVG to the lateral circumflex and high lateral circumflex-2016 at [facility] in [place], [place]) superimposed on hyperlipidemia and hypertension. He denies chest, arm, jaw, or neck discomfort. He denies palpitations. He states bilateral lower extremity edema that is improving. He denies claudication. He states shortness of breath with activity when walking long distance. He denies shortness of breath at rest, orthopnea, or PND. He denies chronic cough. He denies significant, sudden weight gain. He denies lightheadedness, dizziness, near-syncope, or syncope. He denies blood in urine, blood in stool, or epistaxis. He denies fever with chills. He denies myalgia. He denies fatigue. His exercise level has remained stable. Intake Vital Signs 06/22/23 13:03 12/22/23 14:06 Height 5 ft 10 in 5 ft 10 in Weight: 220 lb BMI 31.5 BP 153/59 H Blood Pressure Location Lt brachial Position Sitting Respiration 18 Pulse 42 L Pulse Source NIBP Intake Visit Reasons: 6 M FU Statement Clerks Manager Required: No Is patient in pain?: No Allergies No Known Allergies Allergy (Verified 12/22/23 14:09) Medications ???Medication ???Instructions ???Recorded ???Confirmed ???Type ropinirole 1 mg tablet 1 mg PO DAILY restless legs 09/06/15 12/22/23 History atorvastatin 20 mg tablet 20 mg PO QHS #90 tabs 11/13/17 12/22/23 Rx gemfibrozil 600 mg tablet 600 mg PO DAILY #90 tabs 11/13/17 12/22/23 Rx omeprazole 40 mg capsule,delayed 40 mg PO DAILY #90 caps 11/13/17 12/22/23 Rx release aspirin 81 mg tablet,delayed 81 mg PO QDAY heart health 11/27/17 12/22/23 History release (Adult Aspirin Regimen) multivitamin 1 tab PO QAM vitamin 11/27/17 12/22/23 History carvedilol 3.125 mg tablet 3.125 mg PO BID #180 tabs 03/10/23 12/22/23 Rx lisinopril 20 mg tablet 20 mg PO BID #180 tabs 06/24/23 12/22/23 Rx hydrochlorothiazide 12.5 mg tablet 12.5 mg PO QDAY 12/22/23 12/22/23 History nystatin 100,000 unit/gram topical 1 applic topical BID PRN 12/22/23 12/22/23 History powder Ejection fraction %: 65 Have you fallen in the past year?: No PFSH Medical History (Reviewed 12/22/23 @ 14:26 by Vivek Woods AUTO ACCESSORIES INSTALLER, AUT[employer] ACCESS[employer]IES INSTALLER-C) Personal history of colonic polyps Cholelithiasis with chronic cholecystitis Cholelithiasis Essential hypertension GERD (gastroesophageal reflux disease) Obstructive sleep apnea Atherosclerosis of coronary artery of [place] heart without angina pectoris Syncope and collapse Hypertension Hyperlipidemia Surgical History (Reviewed 12/22/23 @ 14:26 by Vivek Woods AUTO ACCESSORIES INSTALLER, AUTO ACCESSORIES INSTALLER-C) History of laparoscopic cholecystectomy ( 04/08/19) History of colonoscopy ( 03/2019) History of hemorrhoidectomy H/O coronary artery bypass surgery (09/11/15) Family History (Reviewed 12/22/23 @ 14:26 by Vivek Woods AUTO ACCESSORIES INSTALLER, AUTO ACCESSORIES INSTALLER-C) Mother Arthritis Heart disease Father Cancer Social History Smoking Status: Former smoker how long ago did patient quit smokin alcohol intake: current alcohol intake frequency: holidays/special occasions only substance use type: does not use caffeine: Yes Type: coffee Number of servings: 4 ROS Const Const: Negative for fatigue, weakness, headache(s), frequent falls, difficulty sleeping or excessive sweating Eyes Eyes: Negative for loss of peripheral vision, transient loss of vision, blurry vision, double vision or tunnel vision ENT ENT: Negative for headache(s), dizziness, Nosebleed/epistaxis or balance problems Cardio Chest Pain: No Palpitations: No Edema: Bilateral (Improving) Muscle aches with walking: None Resp Respiratory: Positive for SOB with activity (Only when walking alot- unchanged); Negative for SOB at rest, SOB orthopnea SOB lying down, Cough or paroxysmal nocturnal dyspnea GI GI: Negative nausea, vomiting, heartburn or black,tarry stools : Negative for hematuria Musc Musc: Negative for muscle aches/ myalgia, muscle weakness, joint pain or balance problems Skin Skin: Negative non-healing lesions, rash or unusual bruising Neuro Neuro: Negative for dizziness, lightheadedness, near syncope, syncope, frequent falls, headache(s), weakness, blurry vision, double vision or lack of coordination Rudi Hematologic/Lymph (more content not included)... Normal [facility] Basic Metabolic Profile (BMP )on 11-30-2023 BUN/CRE 20.7 RATIO High 10-20 [facility] Comment on above: Order Comment: Order Date: 11/30/23Order Info: 666-06 - BMP Performed By: #### L 500.2500 ####[facility] [address] [place], [address] CA,Total 9.2 mg/dL Normal 8.5-10.1 [facility] Comment on above: Order Comment: Order Date: 11/30/23Order Info: 666-06 - BMP Performed By: #### L 500.2500 ####[facility] [address] [place], [address] Chloride [Moles/Vol] 104 mmol/L Normal 98-107 [facility] Comment on above: Order Comment: Order Date: 11/30/23Order Info: 666-06 - BMP Performed By: #### L 500.2500 ####[facility] [address] [place], [address] CO2 [Moles/Vol] 26.0 mmol/L Normal 21.0-32.0 [facility] Comment on above: Order Comment: Order Date: 11/30/23Order Info: 666-06 - BMP Performed By: #### L 500.2500 ####[facility] [address] [place], [address] Creatinine [Mass/Vol] 1.40 mg/dL High 0.70-1.30 [facility] Comment on above: Order Comment: Order Date: 11/30/23Order Info: 06- - BMP Result Comment: The validity of the calculated GFR GFRAA in patients over 70 years has not been determined. Clinical correlation is essential. Performed By: #### L 500.2500 ####[facility] [address] [place], [address] EST GFR - AA 63 mL/min Normal >60 [facility] Comment on above: Order Comment: Order Date: 11/30/23Order Info: 06- - BMP Result Comment: Afri can [place] GFR Calc Performed By: #### L 500.2500 ####[facility] [address] [place], [address] GAP 7 Normal 5-15 [facility] Comment on above: Order Comment: Order Date: 11/30/23Order Info: 666-06 - BMP Performed By: #### L 500.2500 ####[facility] [address] [place], [address] GFR/1.73 sq M.predicted among non-blacks MDRD (S/P/Bld) [Vol rate/Area] 52 mL/min/{1.73_m2} Low >60 [facility] Comment on above: Order Comment: Order Date: 11/30/23Order Info: 666- - BMP Result Comment: Non- GFR Calc Performed By: #### L 500.2500 ####[facility] [address] [place], [address] Glucose [Mass/Vol] 102 mg/dL Normal 74-106 [facility] Comment on above: Order Comment: Order Date: 11/30/23Order Info: 666-06 - BMP Result Comment: Fast ing Glucose result from 100 to 125 mg/dL suggests IMPAIRED HOMEOSTASIS per A.D.A. criteria. Performed By: #### L 500.2500 ####[facility] [address] [place], [address] Potassium [Moles/Vol] 4.4 mmol/L Normal 3.5-5.1 [facility] Comment on above: Order Comment: Order Date: 11/30/23Order Info: 666-06 - BMP Performed By: #### L 500.2500 ####[facility] [address] [place], [address] Sodium [Moles/Vol] 137 mmol/L Normal 136-145 [facility] Comment on above: Order Comment: Order Date: 11/30/23Order Info: 06 - BMP Performed By: #### L 500.2500 ####[facility] [address] [place], [address] Urea nitrogen [Mass/Vol] 29 mg/dL High 7-18 [facility] Comment on above: Order Comment: Order Date: 11/30/23Order Info: 0667-1 - BMP Performed By: #### L 500.2500 ####[facility] [address] [place], [address] Knee 4 or More Viewson 11-08 Knee 4 or More Views [facility] Imaging Services [address] [place] [address] Knee 4 or More Views MR#: [id number] Acct: [id number] Name: FLOYD HOWELL Rep #: [id number] : 1945 M 78 From: Geo emerson MD PCP: Dr. Ishmael Garrett MD Status: REG CLI Study: Knee 4 or More Views Date of Exam: 11/09/23 Exam# [id number] Ordering Dr: Ishmael Garrett [id number] STUDY: X-RAY - LEFT KNEE REASON FOR EXAM: Male, 78 years old. Left knee pain. No history of injury. TECHNIQUE: 4 view(s) of the knee. COMPARISON: None. FINDINGS: Normal visualized distal femur. Normal visualized proximal tibia and fibula. Normal proximal tibiofibular articulation. Normal medial femorotibial compartment. Normal lateral femorotibial compartment. There is mild degenerative arthrosis of the patellofemoral articulation. The soft tissue structures are unremarkable. RAD/Knee 4 or More Views IMPRESSION: Degenerative arthrosis. Electronically Signed: Geo Moreno MD at 12:59 EDT , CC: Dr. Ishmael Garrett MD Property Clerk: Signed Normal [facility] Basophil percentageOrdered B y: Jesus Garrett on 08-31-2023 Chloride [Moles/Vol] 101 mmol/L 98-107 [facility] Glucose [Mass/Vol] 123 mg/dL 74-106 [facility] Comment on above: Fasting Glucose resu lt from 100 to 125 mg/dL suggests IMPAIRED HOMEOSTASIS per A.D.A. criteria. Potassium [Moles/Vol] 4.3 mmol/L 3.5-5.1 [facility] Sodium [Moles/Vol] 137 mmol/L 136-145 [facility] Laboratory - Chemistry and C hemistry - challengeOrdered By: Jesus Garrett on 08-31-2023 CO2 [Moles/Vol] 29.0 mmol/L 21.0-32.0 [facility] Urea nitrogen/Creatinine [Mass ratio] 14.6 mg/mg 10-20 [facility] No Panel InformationOrdered By: Jesus Garrett on 08-31-2023 Estimated GFR (MDRD) Amer 69 mL/min >60 [facility] Comment on above: GFR Calc Estimated GFR (MDRD) Non-Af Amer 57 mL/min >60 [facility] Comment on above: Non- GFR Calc Serum or plasma calcium rebekah urement (mass/volume)Ordered By: Jesus Garrett on 08-31-2023 Calcium [Mass/Vol] 9.4 mg/dL 8.5-10.1 [facility] Serum or plasma creatinine m easurement (mass/volume)Ordered By: Jesus Garrett on 08-31-2023 Creatinine [Mass/Vol] 1.30 mg/dL 0.70-1.30 [facility] Comment on above: The validity of the calculated GFR & GFRAA in patients over 70 years has not been determined. Clinical correlation is essential. Serum or plasma urea nitroge n measurement (mass/volume)Ordered By: Jesus Garrett on 08-31-2023 Urea nitrogen [Mass/Vol] 19 mg/dL 7-18 [facility] Thin prep Papanicolaou smear with manual screeningOrdered By: Jesus Garrett on 08-31-2023 Thin prep Papanicolaou smear with manual screening 7 5-15 [facility] Basophil percentageOrdered B y: Jesus Garrett on 08-13-2023 Bilirubin [Mass/Vol] 0.80 mg/dL 0.20-1.00 [facility] Comment on above: For patients on eltr ombopag therapy, use of Dimension [place] TBIL is not recommended. Chloride [Moles/Vol] 105 mmol/L 98-107 [facility] Cholesterol [Mass/Vol] 151 mg/dL <200 [facility] Comment on above: <200 mg/dL Desirable 200-240 mg/dL Borderline >240 mg/dL High Risk Glucose [Mass/Vol] 116 mg/dL 74-106 [facility] Comment on above: Fasting Glucose resu lt from 100 to 125 mg/dL suggests IMPAIRED HOMEOSTASIS per A.D.A. criteria. Potassium [Moles/Vol] 4.2 mmol/L 3.5-5.1 [facility] Protein [Mass/Vol] 6.9 g/dL 6.4-8.2 [facility] Sodium [Moles/Vol] 138 mmol/L 136-145 [facility] Triglyceride [Mass/Vol] 88 mg/dL <199 [facility] Comment on above: The drugs N-Acetylcy steine and Metamizole may falsely depress this assay.Serum Triglycerides Reference Interval Normal <150 mg/dL Borderline high 150 - 199 mg/dL High 200 - 499 mg/dL Very High > or = 500 mg/dL Laboratory - Chemistry and C hemistry - challengeOrdered By: Jesus Garrett on 08-13-2023 Albumin/Globulin [Mass ratio] 1.3 {ratio} 0.9-2.4 [facility] ALP [Catalytic activity/Vol] 30 U/L 45-117 [facility] ALT [Catalytic activity/Vol] 25 U/L 16-61 [facility] Cholesterol in HDL [Mass/Vol] 57 mg/dL >40 [facility] Comment on above: The drugs N-Acetylcy steine and Metamizole may falsely depress this assay. Reference Range HDL <40 mg/dL Low HDL Cholesterol HDL >or= 60 mg/dL High HDL Cholesterol Cholesterol in LDL [Mass/Vol] 76 mg/dL 0-130 [facility] CO2 [Moles/Vol] 27.0 mmol/L 21.0-32.0 [facility] Globulin (S) [Mass/Vol] 3.0 g/dL 2.2-4.2 [facility] Urea nitrogen/Creatinine [Mass ratio] 15.4 mg/mg 10-20 [facility] No Panel InformationOrdered By: Jesus Garrett on 08-13-2023 Estimated GFR (MDRD) Amer 69 mL/min >60 [facility] Comment on above: GFR Calc Estimated GFR (MDRD) Non-Af Amer 57 mL/min >60 [facility] Comment on above: Non- GFR Calc VLDL Cholesterol 18 mg/dL 5-40 [facility] Serum or plasma calcium rebekah urement (mass/volume)Ordered By: Jesus Garrett on 08-13-2023 Calcium [Mass/Vol] 9.0 mg/dL 8.5-10.1 [facility] Serum or plasma creatinine m easurement (mass/volume)Ordered By: Jesus Garrett on 08-13-2023 Creatinine [Mass/Vol] 1.30 mg/dL 0.70-1.30 [facility] Comment on above: The validity of the calculated GFR & GFRAA in patients over 70 years has not been determined. Clinical correlation is essential. Serum or plasma urea nitroge n measurement (mass/volume)Ordered By: Jesus Garrett on 08-13-2023 Urea nitrogen [Mass/Vol] 20 mg/dL 7-18 [facility] Thin prep Papanicolaou smear with manual screeningOrdered By: Jesus Garrett on 08-13-2023 Thin prep Papanicolaou smear with manual screening 3.9 g/dL 3.2-5.0 [facility] Thin prep Papanicolaou smear with manual screening 18 U/L 15-37 [facility] Thin prep Papanicolaou smear with manual screening 6 5-15 [facility] Basophil percentageon 2021 Bilirubin [Mass/Vol] 0.50 mg/dL 0.20-1.00 [facility] Work Phone: Comment on above: For patients on eltr ombopag therapy, use of [place] TBIL is not recommended. Cholesterol [Mass/Vol] 154 mg/dL <200 [facility] Work Phone: Comment on above: <200 mg/dL Desirable 200-240 mg/dL Borderline >240 mg/dL High Risk Protein [Mass/Vol] 7.0 g/dL 6.4-8.2 [facility] Work Phone: Triglyceride [Mass/Vol] 98 mg/dL [facility] Work Phone: Comment on above: The drugs N-Acetylcy steine and Metamizole may falsely depress this assay.Serum Triglycerides Reference Interval Normal <150 mg/dL Borderline high 150 - 199 mg/dL High 200 - 499 mg/dL Very High > or = 500 mg/dL Chloride [Moles/Vol] 103 mmol/L 98-107 [facility] Work Phone: Glucose [Mass/Vol] 113 mg/dL 74-106 [facility] Work Phone: Comment on above: Fasting Glucose resu lt from 100 to 125 mg/dL suggests IMPAIRED HOMEOSTASIS per A.D.A. criteria. Potassium [Moles/Vol] 4.7 mmol/L 3.5-5.1 [facility] Work Phone: Sodium [Moles/Vol] 136 mmol/L 136-145 [facility] Work Phone: Direct bilirubinon 2 Bilirubin.direct [Mass/Vol] 0.14 mg/dL 0.00-0.30 [facility] Work Phone: Laboratory - Chemistry and C hemistry - challengeon 08-26-2021 ALP [Catalytic activity/Vol] 28 U/L 45-117 [facility] Work Phone: ALT [Catalytic activity/Vol] 35 U/L 16-61 [facility] Work Phone: Globulin (S) [Mass/Vol] 3.1 g/dL 2.2-4.2 [facility] Work Phone: CO2 [Moles/Vol] 26.0 mmol/L 21.0-32.0 [facility] Work Phone: Urea nitrogen/Creatinine [Mass ratio] 18.2 mg/mg 10-20 [facility] Work Phone: No Panel Informationon 08-26 Estimated GFR (MDRD) Amer 68 mL/min >60 [facility] Work Phone: Comment on above: GFR Calc Estimated GFR (MDRD) Non-Af Amer 56 mL/min >60 [facility] Work Phone: Comment on above: Non- GFR Calc Prostate Specific Antigen Screen 1.72 ng/mL 0.00-4.00 [facility] Work Phone: Comment on above: This test was perfor med using the TPSA assay method for [employer] chemistry system. Values obtained with differentassay methods cannot be used interchangably.When changing PSA assays in the course of monitoring apatient, additional sequential testing should be carriedout to confirm baseline values. Serum or plasma albumin rebekah urement (mass/volume)on 08-26-2021 Albumin [Mass/Vol] 3.9 g/dL 3.2-5.0 [facility] Work Phone: Serum or plasma calcium rebekah urement (mass/volume)on 08-26-2021 Calcium [Mass/Vol] 9.3 mg/dL 8.5-10.1 [facility] Work Phone: Serum or plasma cholesterol in HDL measurement (mass/volume)on 08-26-2021 Cholesterol in HDL [Mass/Vol] 56 mg/dL [facility] Work Phone: Comment on above: The drugs N-Acetylcy steine and Metamizole may falsely depress this assay. Reference Range HDL <40 mg/dL Low HDL Cholesterol HDL >or= 60 mg/dL High HDL Cholesterol Serum or plasma cholesterol in VLDL measurement (mass/volume)on 08-26-2021 Cholesterol in VLDL [Mass/Vol] 20 mg/dL 5-40 [facility] Work Phone: Serum or plasma creatinine m easurement (mass/volume)on 08-26-2021 Creatinine [Mass/Vol] 1.32 mg/dL 0.70-1.30 [facility] Work Phone: Comment on above: The validity of the calculated GFR & GFRAA in patients over 70 years has not been determined. Clinical correlation is essential. Serum or plasma low density lipoprotein (LDL) cholesterol measurement (mass/volume)on 08-26-2021 Cholesterol in LDL [Mass/Vol] 78 mg/dL 0-130 [facility] Work Phone: Serum or plasma urea nitroge n measurement (mass/volume)on 08-26-2021 Urea nitrogen [Mass/Vol] 24 mg/dL 7-18 [facility] Work Phone: Thin prep Papanicolaou smear with manual screeningon 08-26-2021 Thin prep Papanicolaou smear with manual screening 23 U/L 15-37 [facility] Work Phone: Thin prep Papanicolaou smear with manual screening 7 5-15 [facility] Work Phone: Final Surgical Pathology Rep [facility] 03-22-2019 Final Surgical Pathology Report . Pathology Reports Accession: Collected Date/Time: Received Date/Time: Pathologist: [id number] 03/21/2019 09:50 EDT 03/21/2019 14:41 EDT MD JEANETTE BOLAÑOS Final Surgical Pathology Report DIAGNOSIS: DESCENDING COLON, BIOPSY: HYPERPLASTIC POLYP. COMMENT: [facility] - D# [id number] CLINICAL INFORMATION: Procedure: COLONOSCOPY WITH BIOPSY Preoperative diagnosis: POSITIVE COLOGUARD DNA STOOL Postoperative diagnosis: DESCENDING COLON POLYP SPECIMEN: A DESCENDING COLON POLYP GROSS DESCRIPTION: Received in formalin labeled descending colon polyp are 2 jarvis glistening soft tissues, 0.3 and 0.4 cm. TS -1 Dictated by Peyton BLOOM ([facility]) MICROSCOPIC DESCRIPTION: Slides reviewed. Electronically Signed by Pathology Report verified by [facility] Electronically signed by JEANETTE BOLAÑOS MD Sign out Date: 03/22/2019 14:34 Performing Lab: [facility], [address] [place] [address] ([place] Comment on above: Performed By: #### S PFR #### [facility] [address] [place] [address] Office Visiton 04-27-2017 Dietary management education, guidance, and counseling (procedure) yes Invalid Interpretation Code [facility] Phone: [phone] Documentation of current medications (procedure) Done Invalid Interpretation Code [facility] Work Phone: [phone] Clinical Lists 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 Left ventricular Ejection fraction 65 % Invalid Interpretation Code [facility] Work Phone: [phone] Lab Report: CBC-Complete Blo od Cnt No Diffon 01-15-2017 Erythrocyte distribution width Auto Ratio (RBC) 13.3 % Invalid Interpretation Code 11.6-14.6 [facility] Phone: [phone] Erythrocytes (RBC) 5.06 10*6/uL Invalid Interpretation Code 4.6-6.2 [facility] Work Phone: [phone] Hematocrit (HCT) 45.7 % Invalid Interpretation Code 40-54 [facility] Phone: [phone] Hemoglobin mass conc (Bld) 15.8 g/dL Invalid Interpretation Code 13.0-16.5 [facility] Phone: [phone] MCH 31.2 pg Invalid Interpretation Code 27.0-32.0 [facility] Work Phone: [phone] MCHC mass conc (RBC) 34.6 G/GL Invalid Interpretation Code 32-36 [facility] Work Phone: [phone] MCV 90.3 fL Invalid Interpretation Code 80-94 [facility] Phone: [phone] Platelets 286 10*3/mm3 Invalid Interpretation Code 150-450 [facility] Phone: [phone] PMV by Tristian 9.9 fL Invalid Interpretation Code 6.2-12.0 [facility] Phone: [phone] RDW SD 43.2 fL Invalid Interpretation Code 35.1-43.9 [facility] Phone: [phone] WBC (Leukocytes) 5.9 10*3/uL Invalid Interpretation Code 4.4-11.0 [facility] Work Phone: [phone] Lab Report: Comprehensive Az fermin Watsonon 01-15-2017 Alanine aminotransferase (ALT) 32 U/L Invalid Interpretation Code 12-78 [facility] Work Phone: [phone] Albumin 3.8 g/dL Invalid Interpretation Code 3.4-5.0 [facility] Work Phone: [phone] Albumin/Globulin Ratio 1.1 {ratio} Invalid Interpretation Code 0.9-2.4 [facility] Work Phone: [phone] Alkaline phosphatase (ALP) 34 U/L Low 45-117 [facility] Work Phone: [phone] Anion gap 8 mmol/L Invalid Interpretation Code 5-15 [facility] Work Phone: [phone] Aspartate aminotransferase (AST) 21 U/L Invalid Interpretation Code 15-37 [facility] Work Phone: [phone] Bilirubin (total) 0.70 mg/dL Invalid Interpretation Code 0.20-1.00 [facility] Work Phone: [phone] BUN/Creatinine Ratio 26.2 RATIO High 10-20 [facility] Work Phone: [phone] Calcium 8.7 mg/dL Invalid Interpretation Code 8.5-10.1 [facility] Work Phone: [phone] Chloride 106 mmol/L Invalid Interpretation Code 98-107 [facility] Work Phone: [phone] CO2 26.0 mmol/L Invalid Interpretation Code 21.0-32.0 [facility] Work Phone: [phone] Creatinine 1.26 mg/dL Invalid Interpretation Code 0.70-1.30 [facility] Work Phone: [phone] eGFR (non-black) 73 mL/min/{1.73_m2} Invalid Interpretation Code >60 [facility] Work Phone: [phone] eGFR (non-black) 60 mL/min/{1.73_m2} Invalid Interpretation Code >60 [facility] Work Phone: [phone] Globulin 3.5 g/dL Invalid Interpretation Code 2.3-3.5 [facility] Work Phone: [phone] Glucose mass conc 104 mg/dL Invalid Interpretation Code 70-110 [facility] Work Phone: [phone] Potassium molar conc 3.9 mmol/L Invalid Interpretation Code 3.5-5.1 [facility] Work Phone: [phone] Protein 7.3 g/dL Invalid Interpretation Code 6.4-8.2 [facility] Work Phone: [phone] Sodium 140 mmol/L Invalid Interpretation Code 136-145 [facility] Work Phone: [phone] Urea nitrogen 33 mg/dL High 7-18 [facility] Work Phone: [phone] Lab Report: Lipid Profileon 01-15-2017 Cholesterol 158 mg/dL Invalid Interpretation Code 200 [facility] Work Phone: [phone] HDL Cholesterol 62 mg/dL Invalid Interpretation Code [facility] Work Phone: [phone] LDL Cholesterol 78 mg/dL Invalid Interpretation Code 0-130 [facility] Work Phone: [phone] Triglyceride 90 mg/dL Invalid Interpretation Code [facility] Work Phone: [phone] very low density lipoproteins 18 mg/dL Invalid Interpretation Code 5-40 [facility] Work Phone: [phone] Lab Report: Thyroid Stim Hor nellie (TSH)on 01-15-2017 Thyroid stimulating hormone (TSH) 0.65 u[iU]/mL Invalid Interpretation Code 0.358-3.74 [facility] Work Phone: [phone] Office Visiton 10-20-2016 Dietary management education, guidance, and counseling (procedure) yes Invalid Interpretation Code [facility] Work Phone: [phone] Documentation of current medications (procedure) Done Invalid Interpretation Code [facility] Work Phone: [phone] Fall risk assessment Yes Invalid Interpretation Code [facility] Work Phone: [phone] Lab Report: Liver Profileon 07-14-2016 Bilirubin (direct) 0.14 mg/dL Invalid Interpretation Code 0.00-0.30 [facility] Work Phone: [phone] Office Visiton 04-18-2016 Tobacco use CPHS Former smoker Invalid Interpretation Code [facility] Work Phone: [phone] Lab Report: CBC W/Diff, Auto matedon 09-28-2015 Absolute Neut 5.1 X10 3/UL Invalid Interpretation Code 2.0-7.7 [facility] Work Phone: [phone] Basophils/100 WBC Auto (Bld) 0.4 % Invalid Interpretation Code 0-1 [facility] Work Phone: [phone] Eosinophils/100 leukocytes 2.1 % Invalid Interpretation Code 0-5 [facility] Work Phone: [phone] Immature granulocytes/100 WBC (Bld) 0.100 % Invalid Interpretation Code 0.0-0.9 [facility] Work Phone: [phone] Lymphocytes 1.21 X10 3/UL Invalid Interpretation Code 0.83-4.51 [facility] Work Phone: [phone] Lymphocytes/100 leukocytes 17.0 % Low 19-41 [facility] Work Phone: [phone] Monocytes/100 leukocytes 9.5 % Invalid Interpretation Code 0-10 [facility] Work Phone: [phone] Neutrophils/100 WBC Auto (Bld) 70.9 % High 47-70 [facility] Work Phone: [phone] Replaced Document: Jacquelin CASTELAN Observationson 09-28-2015 EKG QRS axis -18 deg Invalid Interpretation Code [facility] Work Phone: [phone] Interpretation Sinus Rhythm - Nonspecific T-abnormality. Poor SNR (< 1) in leads V3 ABNORMAL Invalid Interpretation Code [facility] Work Phone: [phone] P Veteran 45 deg Invalid Interpretation Code [facility] Work Phone: [phone] MO Interval 160 ms Invalid Interpretation Code [facility] Work Phone: [phone] Pulse (Heart Rate) 68 /min Invalid Interpretation Code [facility] Work Phone: [phone] QRS Duration 100 ms Invalid Interpretation Code [facility] Work Phone: [phone] QT Interval new path ms Invalid Interpretation Code [facility] Work Phone: [phone] QTc Childs 410 ms Invalid Interpretation Code [facility] Work Phone: T Veteran 90 deg Invalid Interpretation Code [facility] Work Phone: [phone] Vital Signs Date Time Vital Sign Value Performing Clinician Tamie strong 07-22-2024 11:05-0500 Body height 177.[address] Ishmael Garrett MD Work Phone: [facility] 07-22-2024 11:05-0500 Body mass index (BMI) [Ratio] 32.4 kg/m2 Dr. Ishmael Garrett MD Work Phone: [facility] 07-22-2024 11:05-0500 Body weight 102.[address] Ishmael Garrett MD Work Phone: [facility] 07-22-2024 11:05-0500 Diastolic blood pressure 75 mm[Hg] Dr. Ishmael Garrett MD Work Phone: [facility] 07-22-2024 11:05-0500 Heart rate 51 /min Dr. Ishmael Garrett MD Work Phone: [facility] 07-22-2024 11:05-0500 Respiratory rate 18 /min Dr. Ishmael Garrett MD Work Phone: [facility] 07-22-2024 11:05-0500 SaO2% (BldA) [Mass fraction] 97 % Dr. Ishmael Garrett MD Work Phone: [facility] 07-22-2024 11:05-0500 Systolic blood pressure 155 mm[Hg] Dr. Ihsmael Garrett MD Work Phone: [facility] 06-22-2023 13:03-0500 Body height 177.[address] Jesus Garrett Work Phone: [facility] 06-22-2023 12:57-0500 Body mass index (BMI) [Ratio] 31.7 kg/m2 Dr. Jesus Garrett Work Phone: [facility] 06-22-2023 12:57-0500 Body weight 100.[address] Jesus Garrett Work Phone: [facility] 06-22-2023 12:57-0500 Diastolic blood pressure 64 mm[Hg] Dr. Jesus Garrett Work Phone: [facility] 06-22-2023 12:57-0500 Heart rate 51 /min Dr. Jesus Garrett Work Phone: [facility] 06-22-2023 12:57-0500 Respiratory rate 18 /min Dr. Jesus Garrett Work Phone: [facility] 06-22-2023 12:57-0500 Systolic blood pressure 164 mm[Hg] Dr. Jesus Garrett Work Phone: [facility] 04-27-2017 13:47-0500 BMI (Body Mass Index) 31.4 kg/m2 [facility] Work Phone: 04-27-2017 13:47-0500 BP Diastolic 60 mm[Hg] Tanika Dallas [facility] Work Phone: 04-27-2017 13:47-0500 BP Systolic 136 mm[Hg] Tanikaleighton Haynes [facility] Work Phone: 04-27-2017 13:47-0500 Height 179.07 cm Tanikaleighton Haynes [facility] Work Phone: 04-27-2017 13:47-0500 Pulse (Heart Rate) 60 /min Taniak Dallas [facility] Work Phone: 04-27-2017 13:47-0500 Respiratory Rate 16 /min Tanika Dallas [facility] Work Phone: 04-27-2017 13:47-0500 Weight 100.7 kg Tanikaleighton Haynes [facility] Work Phone: 10-20-2016 08:15-0400 BMI (Body Mass Index) 31.68 kg/m2 Francia Liu RN [facility] Work Phone: 10-20-2016 08:15-0400 BP Diastolic 74 mm[Hg] Francia Liu RN [facility] Work Phone: 10-20-2016 08:15-0400 BP Systolic 140 mm[Hg] Fracnia Liu RN [facility] Work Phone: 10-20-2016 08:15-0400 Height 179.07 cm Francia Liu RN [facility] Work Phone: 10-20-2016 08:15-0400 Pulse (Heart Rate) 54 /min Francia Liu RN [facility] Work Phone: 10-20-2016 08:15-0400 Respiratory Rate 18 /min Francia Liu RN [facility] Work Phone: 10-20-2016 08:15-0400 Weight 101.61 kg Francia Liu RN [facility] Work Phone: 04-18-2016 13:48-0500 BSA (Body Surface Area) 2.14 m2 Francia Liu RN [facility] Work Phone: 10-08-2015 10:11-0400 Body Temperature 97.2 [degF] Francia Liu RN [facility] Work Phone: Encounters Encounter Date Encounter Type Care Provider Facility Start: 09-21-2024 End: 09-21-2024 ambulatory Dario Ashley Facility[facility] Start: 08-29-2024 Non-patient / Non-visit Dr. Juan Carlos guevara MD -[facility] Start: 08-29-2024 End: 08-29-[address] Ishmael Garrett MD Work Phone: [facility] Work Phone: Start: 08-29-2024 End: 08-29-[address] Dario Ashley MD -[facility] Work Phone: Start: 08-29-2024 End: 08-29-2024 ambulatory Dario Ashley Facility:[facility] Start: 07-22-2024 End: 07-22-[address] Dario Ashley MD -[facility] Work Phone: Start: 07-22-2024 End: 07-22-2024 ambulatory Dario Ashley Facility:[facility] Start: 04-07-2024 Encounter for genera l adult medical examination without abnormal findings Ishmael Garrett [facility] Start: 03-16-2024 End: 03-16-2024 ambulatory Ishmael Garrett Facility:[facility] Start: 12-22-2023 End: 12-22-2023 ambulatory Ishmael Garrett Facility:[facility] Start: 11-30-2023 End: 11-30-2023 ambulatory Ishmael Garrett Facility:[facility] Start: 11-09-2023 End: 11-09-2023 ambulatory Ishmael Garrett Facility:[facility] Start: 08-31-2023 End: 08-31-[address] Jesus Garrett Work Phone: [facility] Work Phone: Start: 08-31-2023 End: 08-31-[address] Jesus Garrett Work Phone: [facility] Start: 08-13-2023 End: 08-13-[address] Jesus Garrett Work Phone: [facility] Work Phone: Start: 08-13-2023 End: 08-13-[address] Jesus Garrett Work Phone: [facility] Start: 06-22-2023 End: 06-22-[address] Jesus Garrett Work Phone: [facility] Work Phone: Start: 03-31-2022 End: 03-31-2022 Emergency department patient visit [facility] Start: 08-26-2021 End: 08-26-2021 Patient encounter procedure [facility] Procedures Date Procedure Procedure Detail Performing Clinician Start: 07-22-2024 Evaluation of diagno stic study results Dr. Ishmael Garrett MD Work Phone: Start: 04-27-2017 End: 04-27-2017 DANILO Judge MD Work Phone: Start: 04-27-2017 End: [...] Phone: Start: 10-08-2015 End: 10-09-2015 Referral to relay repairer Marquez Judge MD Work Phone: Start: 09-28-2015 End: 10-01-2015 *BMP Marquez Judge MD Work Phone: Start: 09-28-2015 End: 10-01-2015 *CBC with Differential Marquez Judge MD Work Phone: Start: 09-28-2015 End: 10-01-2015 Ecg routine ecg w/least 12 lds w/i&r Marquez Judge MD Work Phone: Start: 09-28-2015 End: 04-11-2016 Xtrnl mobile cv telemetry w/i&report 30 days Marquez Judge MD Work Phone: Start: 09-11-2015 History of coronary artery bypass grafting H/O coronary artery bypass surgery Comment on above: CABG x 4 Sequential XIE-LAD and D1, SVG-High Lat Cx, SVG-Cx 09/11/15 Dr Min @ [facility] Plan of Treatment Date Care Activity Detail Author Start: 11-19-2017 End: 11-19-2017 Appointment Appointment [facility] Work Phone: Start: 07-20-2017 End: 01-23-2017 *Hepatic Function Panel *Hepatic Function Panel [facility] Work Phone: Start: 07-20-2017 End: 01-23-2017 Lipid panel [AGGREGATE] *Lipid Profile CC PCP [facility] Work Phone: Start: 04-27-2017 End: 04-27-2017 Appointment Appointment [facility] Work Phone: Start: 04-27-2017 End: 04-27-2017 DANILO CARRASCO [facility] Work Phone: Start: 04-27-2017 End: 04-27-2017 Follow Up Appt 6 months Follow Up Appt 6 months [facility] Work Phone: Start: 01-12-2017 End: 01-23-2017 *Hepatic Function Panel *Hepatic Function Panel [facility] Work Phone: Start: 01-12-2017 End: 01-23-2017 Lipid panel [AGGREGATE] *Lipid Profile CC PCP [facility] Work Phone: Start: 10-20-2016 End: 10-20-2016 DJN DJN [facility] Work Phone: Start: 10-20-2016 End: 10-20-2016 Follow Up Appt 6 months Follow Up Appt 6 months [facility] Work Phone: Start: 07-11-2016 End: 07-14-2016 *Hepatic Function Panel *Hepatic Function Panel [facility] Work Phone: Start: 07-11-2016 End: 07-14-2016 Lipid panel [AGGREGATE] *Lipid Profile CC PCP [facility] Work Phone: Start: 04-18-2016 End: 04-18-2016 DJN SONIAN [facility] Work Phone: Start: 04-18-2016 End: 04-18-2016 Follow Up Appt 6 months Follow Up Appt 6 months [facility] Work Phone: Start: 10-08-2015 End: 01-15-2016 *Hepatic Function Panel *Hepatic Function Panel [facility] Work Phone: Start: 10-08-2015 End: 04-18-2016 Cardiac Rehab [facility] [address] [place], [address] [facility] Work Phone: Start: 10-08-2015 End: 10-08-2015 DANILO CARRASCO [facility] Work Phone: Start: 10-08-2015 End: 10-08-2015 Follow Up Appt 6 months Follow Up Appt 6 months [facility] Work Phone: Start: 10-08-2015 End: 01-15-2016 Lipid panel [AGGREGATE] *Lipid Profile CC PCP [facility] Work Phone: Start: 09-28-2015 End: 10-01-2015 *BMP *BMP [facility] Work Phone: Start: 09-28-2015 End: 10-01-2015 *CBC with Differential *CBC with Differential [facility] Work Phone: Start: 09-28-2015 End: 10-01-2015 Ecg routine ecg w/least 12 lds w/i&r EKG (In office) [facility] Work Phone: Start: 09-28-2015 End: 09-28-2015 Xtrnl mobile cv telemetry w/i&report 30 days 30 Day Holter Monitor [facility] Work Phone: Patient Education [facility] Work Phone: Payers Date Payer Category Payer Self-pay [id number] 2023 Medicare [id number] Medicare [id number] Unknown [id number] Unknown [id number] [id number] Unknown [id number] [id number] Unknown [id number] [id number] Unknown [id number] [id number] [id number] Unknown [id number] [id number] Unknown [id number] [id number] Unknown [id number] Social History Date Type Detail Facility Start: 03-01-2021 End: 06-22-2023 Tobacco smoking status [facility] Unknown if ever smoked [facility] Start: 12-31-2018 None [facility] Start: 09-06-2015 Spouse/ Signif icant Other [facility] Start: 03-31-2019 Non-smoker [facility] Start: 1945 Sex Assigned At Male [facility] Start: 06-22-2023 Tobacco smoking status NHIS Ex-smoker (finding) [facility] Start: 08-31-2024 Sex Male (finding) [facility] Medical Equipment Procedure Code Equipment Code Equipment Original Text Equipment Identifier Dates Total cholecystectomy with exploration of common bile duct CLIP,HEMTRX SystemsCK [employer] FDA Start: 04-08-2019 Total cholecystectomy with exploration of common bile duct CLIP,HEMOLOCK [employer] [facility]ECK FDA Start: 04-08-2019 Total cholecystectomy with exploration of common bile duct CLIP,[email or web address] WECK FDA Start: 04-08-2019 Total cholecystectomy with exploration of common bile duct CLIP,HEMOLOCK [employer] FDA Start: 04-08-2019 Total cholecystectomy with exploration of common bile duct CLIP,HEMOLOCK [employer] FDA Start: 04-08-2019 Total cholecystectomy with exploration of common bile duct CLIP,HEMOLOCK MED WECK FDA Start: 04-08-2019 Total cholecystectomy with exploration of common bile duct CLIP,HEMOLOCK MED WECK FDA Start: 04-08-2019 Total cholecystectomy with exploration of common bile duct CLIP,HEMOLOCK [employer] [facility] FDA Start: 04-08-2019 Total cholecystectomy with exploration of common bile duct CLIP,HEMOLOCK [employer] FDA Start: 04-08-2019 Total cholecystectomy with exploration of common bile duct CLIP,HEMOLOCK [employer] FDA Start: 04-08-2019 Total cholecystectomy with exploration of common bile duct CLIP,HEMOLOCK [employer] [facility] FDA Start: 04-08-2019 Total cholecystectomy with exploration of common bile duct CLIP,HEMOLOCK MED WECK FDA Start: 04-08-2019 Evaluation note 07-22-2024 Note Date & Type Note Facility 07-22-2024 Evaluation note Diagnosis Onset Date Resolution 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 July 22 11:02am Bradycardia chronic July 11:02am Essential hypertension chronic Fe bru2024 11:02am Hyperlipidemia chronic July 032024 11:02am [facility] Work Phone: Evaluation note Note Date & Type Note Facility Evaluation note No assessment information availa ble [facility] Work Phone: Evaluation note Note Date & Type Note Facility Evaluation note Diagnosis Onset Date 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 Essential hypertension chron ic Hyperlipidemia chronic [facility] Work Phone: Reason for referral (narrative) Note Date & Type Note Facility Reason for referral (narrative) No reason for referral information available [facility] Work Phone: Summary Purpose Family History No Family History Records Found Relationship Condition Age at Onset Recorded Date/T brianna mother Arthritis Unknown Cardiac disease Unknown father Malignant neoplasm Unknown Advance Directives No Advanced Directives Records Found Advance Directive Response Recorded Date/ Time Advance Directives No September 05 7:50am Living Will Yes March 31 10:59am Power of Food Products Tester Yes March 31, 2019 10:59am Advance Directive Response Recorded Date/ Time Advance Directives No September 05 7:50am Chief Complaint and Reason for Visit Chief Complaint 6 m fu PREV PFM PT Reason for Visit Atherosclerosis of c oronary artery of [place] without angina pectoris Essential hypertension Hyperlipidemia Chief Complaint Admit Date 6 M FU July 22, 2024 11:02am BRUIT August 29, 2024 12: 48pm Reason for Visit Admit Date Atherosclerosis of coronary artery of [place] without angina pectoris July 22, 2024 11:02am Bradycardia July 22, 2024 11:02am Essential hypertension July 22 11:02am Hyperlipidemia July 22, 2024 11:02am Additional Source Comments (unrecognized sect ion and content) No Status Records FoundNo Status Records FoundNo Status Records Found INFORMATION SOURCE (unrecogn ized section and content) DATE CREATED AUTHOR 03/31/2019 [facility] ([place]) DATE CREATED AUTHOR AUTHOR'S ORGANIZ ATION 04/03/2022 [facility] DATE CREATED AUTHOR AUTHOR'S ORGANIZ ATION 09/23/2024 [facility] Goals (unrecognized section and content) Goals may be documented in a n alternate sectionGoals may be documented in an alternate sectionGoals may be documented in an alternate sectionGoals may be documented in an alternate section Care Teams (unrecognized sec tion and content) Team Status: Active Member Role Status Dates Dr. Jesus Garrett MD Family Provider Active Dr. Jesus Garrett MD Primary Care Provider Activ e Team Status: Inactive Member Role Status Dates Dr. Jesus Garrett MD Primary Care Provider, Refe rring Provider Active Dr. Dario Ashley MD Attending Provider Active Team Status: Inactive Member Role Status Dates Dr. Jesus Garrett MD Primary Care Provider, Atte nding Provider Active Team Status: Active Member Role Status Dates Dr. Ishmael Garrett MD Primary Care Provider Acti ve Team Status: Inactive Member Role Status Dates Dr. Ishmael Garrett MD Primary Care Provider Acti ve Start: July 22, 2024 End: July 22, 2024 Dr. Ishmael Garrett MD Referring Provider Active Start: July 22, 2024 End: July 22, 2024 Dr. Dario Ashley MD Attending Provider Active Start: July 22, 2024 End: July 22, 2024 Team Status: Inactive Member Role Status Dates Dr. Ishmael Garrett MD Primary Care Provider Acti ve Start: August 29, 2024 End: August 29, 2024 Dr. Dario Ashley MD Attending Provider Active Start: August 29, 2024 End: August 29, 2024 Dr. Dario Ashley MD Referring Provider Active Start: August 29, 2024 End: August 29, 2024 Team Status: Active Member Role Status Dates Dr. Ishmael Garrett MD Primary Care Provider Acti ve Start: August 29, 2024 Dr. Juan Carlos Cancino MD Attending Provider Active S tart: August 29, 2024 FOR RECORDS PERTAINING TO PATIENTS WHO ARE [...] BE BASED ON THE PRIMARY CLINICAL RECORDS. [facility] [employer] [facility]. provides no warranty or guarantee of the accuracy or completeness of information in this document.
== END | disposition home or self-care (01) ==
LOC: MFPLAB 10:58
PROVIDERS: PCP Family Medicine; Referring Provider Family Medicine; Visit Provider Family Medicine
DX: I25.10 Atherosclerotic heart disease of native coronary artery without angina pectoris (principal); N18.31 Chronic kidney disease, stage 3a
CPT/HCPCS: 36415; 80053; 80061; 82306; 83970; 85027